=== PATIENT | male | born 1955 | race Caucasian/White ===

== ENCOUNTER 2019-07-17 02:33 | Day surgery (SDC) | payer MEDICAID, SELFPAY ==
[2019-07-17] VITALS (9 sets, daily range): BP systolic 76–159; BP diastolic 34–109; PULSE 87–100; RESP 16; TEMP 36.7; O2SAT 91–96
--- NOTE | 2019-07-17 02:46 | ED.GENADUL_ITS ---
Discharge Plan Disposition Patient Disposition: [facility] INPATIENT Condition: Good Discharge Details Chief Complaint: ThroatFB Clinical Impression: Esophageal foreign body Primary Care Provider: Francesco Victoria ED Provider: Elliot Bhandari Harvest Meds and New Rx's Prescriptions: No Action ibuprofen 200 MG tablet 1 tab PO PRN PRNRF: 0 Medical Decision Making Esophageal foreign body that is relatively high. No airway compromise. Will attempt effervescent drink, however, given the proximal nature of this impaction not likely to work. If it does not we will proceed with IV glucagon. Effervescent drink did not work. IV was established and glucagon given. We waited half an hour and then he attempted to drink water again. Immediately regurgitated back up water and saliva. Case therefore discussed with surgery, Dr. Leal. She will be in to evaluate for endoscopy. We will get an EKG preop as he is 64. Otherwise she did not feel that he needed any laboratory studies. ECG Data Attestation: I personally reviewed and interpreted this ECG (s) as follows: Prior ECG tracings: not available for review Interpretation: Sinus rhythm at a rate of 89. Left axis deviation. Normal intervals. No acute ST changes. HPI General Mode of arrival: ambulatory . Date/Time Provider Initiated Documentation: 07/17/19 02:35 . Limitations to Documentation: no limitations . Information obtained by: patient and RN notes reviewed . HPI Narrative: Patient presents to ED with complaint of foreign body sensation. Patient was eating chicken about a hour and a half ago. He feels like it is stuck at about the level of the clavicle. He is unable to swallow anything including saliva. He is not having difficulty breathing. He has not had this happen to him previously. He did have someone try the Heimlich on him but to no avail. He presents now for evaluation. Related Data Home Medications Medication Instructions Recorded Confirmed ibuprofen 1 tab PO PRN PRN 09/12/14 07/17/19 Allergies Allergy/AdvReac Type Severity Reaction Status Date / Time hay fever Allergy Mild sneezes,runny Uncoded 07/17/19 02:41 nose General Stated Complaint: ThroatFB KAVITHA: 3 Review of Systems Review of Systems As documented in HPI otherwise negative as below. Const: no fever, chills, weakness Resp: no cough, SOB, pleuritic pain CV: no CP, diaphoresis, edema, syncope GI: no abdominal pain, nausea, vomiting, diarrhea Neuro: no headache, numbness, focal weakness, confusion PFSH Family History Mother Personal history of malignant neoplasm Father No problems noted. Sister No problems noted. Brother No problems noted. Grandmother No problems noted. Social History Smoking/Tobacco Use Status: Current every day Tobacco Type: cigarettes Alcohol Intake: current Alcohol Intake frequency: holidays/special occasions only Alcohol type: beer Drug use: Never Do you feel safe at home: Yes Exam Narrative Exam Narrative: Vitals: Afebrile. Mildly hypertensive and tachycardic. Normal saturations. Const: WDWN male in NAD. HEENT: NC/AT. Normal facial exam. Neck: Supple. Trachea midline. No stridor. Lungs: Normal respiratory effort. Lungs are clear. Cor: RRR without murmur/gallop. Good radial pulses. GI: Soft. NT/ND. No guarding or rebound. Neuro: A+O x 3. CN grossly in tact. Good strength and no focal deficit. Ext: No C/C/E. No deformity or tenderness. Skin: Warm and dry without rash. Course Vital Signs Temperature 98.1 F 07/17/19 02:37 Pulse 100 H 07/17/19 02:37 Respiratory Rate 16 07/17/19 02:37 Blood Pressure 159/109 H 07/17/19 02:37 Pulse Oximetry 96 07/17/19 02:37 Temperature 98.1 F 07/17/19 02:37 Temperature Source Temporal Artery Scan 07/17/19 02:37 Pulse 100 H 07/17/19 02:37 Respiratory Rate 16 07/17/19 02:37 Respiratory Effort 07/17/19 02:40 Respiratory Pattern Normal 07/17/19 02:40 Blood Pressure 159/109 H 07/17/19 02:37 Pulse Oximetry 96 07/17/19 02:37 Oxygen Delivery Method Room Air 07/17/19 02:37 Oxygen Flow Rate 0 07/17/19 02:37 Pain Level 0 07/17/19 02:37
[2019-07-17] MEDS: Potassium Bicarbonate/Cit AC 25 MEQ TABLET.EFF PO (02:54)
--- NOTE | 2019-07-17 04:17 | W.SURGCON ---
Date of service: 07/17/19 Time of Service: 04:17 Assessment and Plan (1) Impacted esophageal foreign body: Current visit: Yes Status: Acute P\\ EGD under General with removal of foreign body Risks, benefits and complications have been reviewed. Complications include but are not limited to bleeding, pain, perforation, aspiration, sore throat and adverse reaction to the medication. Questions were entertained and answered to their satisfaction and they wished to proceed. No guarantees were given or implied. Qualifiers: Encounter type: initial encounter Qualified Code(s): T18.108A - Unspecified foreign body in esophagus causing other injury, initial encounter History of Present Illness Narrative: Mr. 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 He was eating spaghetti with chicken when he felt it get stuck. He tried the himlich on himself without improvement in his symptoms. He was given glucogon and effervecent without help in the ER. he has no history of GERD or heart Burn. He denies any cardiac history. Review of Systems Constitutional Reports system reviewed and no additional complaints, except as docu ENT Reports system reviewed and no additional complaints, except as docu Cardiovascular Reports system reviewed and no additional complaints, except as docu Respiratory Reports system reviewed and no additional complaints, except as docu Gastrointestinal Reports as per [facility] Medical History (Updated 07/17/19 @ 04:22 by Venus Leal MD) Hay fever (Acute) Tobacco abuse (Acute) Family History Mother Personal history of malignant neoplasm Father No problems noted. Sister No problems noted. Brother No problems noted. Grandmother No problems noted. Social History Smoking/Tobacco Use Status: Current every day Tobacco Type: cigarettes Alcohol Intake: current Alcohol Intake frequency: holidays/special occasions only Alcohol type: beer Drug use: Never Do you feel safe at home: Yes Exam Const General: cooperative, comfortable and no acute distress Orientation: alert and oriented x3 HENMT Head: normocephalic and atraumatic Resp Effort & Inspection: normal respiratory effort Auscultation: clear to auscultation bilaterally Cardio Rate: regular rate Rhythm: regular rhythm Heart Sounds: no gallops, no murmurs and no rubs GI Inspection: normal to inspection Palpation: soft Results Last Vital Signs Temp 98.1 F 07/17/19 02:37 Pulse 100 H 07/17/19 02:37 Resp 16 07/17/19 02:37 BP 159/109 H 07/17/19 02:37 Pulse Ox 96 07/17/19 02:37
[2019-07-17] MEDS: Lactated Ringers 1,000 ML 30 ML IV (05:00)
--- NOTE | 2019-07-17 05:23 | NUR.NOTE ---
Nursing Note: pt went to or at 0455 to have fb removed and will return to er
--- NOTE | 2019-07-17 05:27 | W.PM.DS.N ---
Date of service: 07/17/19 Time of Service: 05:27 DS: Diagnosis Discharge Diagnosis (1) Impacted esophageal foreign body: Status: Acute Discharge Plan Disposition Patient Disposition: HOME Condition: Good Discharge Details Chief Complaint: ThroatFB Clinical Impression: Esophageal foreign body Reason For Visit: esophageal foreign body Attending Provider: Venus Leal Primary Care Provider: Francesco Victoria ED Provider: Elliot Bhandari Home Meds and New Rx's Prescriptions: Continued ibuprofen 200 MG tablet 1 tab PO PRN PRNRF: 0 Discharge Instructions Additional Instructions: Follow up with PCP as needed For the next 24 hours keep to a soft diet. Stay away from meat. Activity:: Activity as Tolerated Diet:: As Tolerated Discharge Orders Discharge Orders: Discharge Order (Routine); Ordered 07/17/19 Ordered By: Venus Leal Exam Resp Effort & Inspection: normal respiratory effort Auscultation: clear to auscultation bilaterally Cardio Rate: regular rate Rhythm: regular rhythm GI Palpation: soft and nontender DS: Data Vitals/I&O Vitals and I&O: Vital Signs Temperature 98.1 F 07/17/19 02:37 Temperature Source Temporal Artery Scan 07/17/19 02:37 Pulse 100 H 07/17/19 02:37 Respiratory Rate 16 07/17/19 02:37 Respiratory Effort 07/17/19 02:40 Respiratory Pattern Normal 07/17/19 02:40 Blood Pressure 159/109 H 07/17/19 02:37 Pulse Oximetry 96 07/17/19 02:37 Oxygen Delivery Method Room Air 07/17/19 02:37 Oxygen Flow Rate 0 07/17/19 02:37 Pain Level 0 07/17/19 02:37 Intake & Output 07/16/19 07/16/19 07/17/19 11:59 23:59 11:59 Intake Total 300 / 300 Balance 300 / 300 Weight 165 lb Intake: IV 300 / 300 PFSH Medical History Hay fever (Acute) Tobacco abuse (Acute) Family History Mother Personal history of malignant neoplasm Father No problems noted. Sister No problems noted. Brother No problems noted. Grandmother No problems noted. Social History Smoking/Tobacco Use Status: Current every day Tobacco Type: cigarettes Alcohol Intake: current Alcohol Intake frequency: holidays/special occasions only Alcohol type: beer Drug use: Never Do you feel safe at home: Yes
--- NOTE | 2019-07-17 05:30 | W.PM.ENDDOP ---
Date of service: 07/17/19 Time of Service: 05:30 Endoscopy Report DATE OF PROCEDURE: 07/17/19 PRE-OP DIAGNOSIS: Esophageal foreign body POST-OP DIAGNOSIS: same PROCEDURE: EGD with removal of foreign body SURGEON: Venus Leal ANESTHESIA: FLAVIA ESTIMATED BLOOD LOSS: 0 PATHOLOGY: none sent COMPLICATIONS: None DISPOSITION: PACU INDICATIONS: Mr. Whitehead is a pleasant 64 year old male who came to the ER for a piece of chicken stuck in his esophagus. Glucagon and effervecents didn't work so EGD with removal was recommended. FINDINGS: A piece of chicken stuck right at the junction of the pharynx and esophagus PROCEDURE DESCRIPTION: After informed consent was obtained the patient was take to the procedure room and placed in a supine position. Monitors were applied and a time out was done. The patients name, date of , procedure type, allergies to medications and metal in their body was reviewed. The patient was placed undr general anesthesia and intubated. A bite block was placed. Once under anesthesia with his airway secured the gastroscope was advanced through the oropharynx which was grossly normal into the proximal esophagus. Right at the junction between the pharynx and esophagus a pice of chicken was noted. First I attempted to grasp it but I couln't get around it. I then gently started to push the piece down the esophagus and into the stomach. The scope was then retracted. no injuries were noted were the meat had been stuck. The EGD was removed and the patient was woken up, extubated and taken back to PACU for recovery. The patient did well and there were no immediate complications. Follow up: as needed with PCP
--- NOTE | 2019-07-17 05:49 | NUR.NOTE ---
Nursing Note: pt returned from or at [id number]
== END 2019-07-17 06:20 | disposition home or self-care (01) ==
LOC: ER 04:27 → DSU 05:02
PROVIDERS: Emergency Provider Emergency Medicine; PCP Family Medicine; Visit Provider Surgery
PROC: 0DC68ZZ Extirpation of Matter from Stomach, Via Natural or Artificial Opening Endoscopic (ICD-10-PCS; CPT 43247; principal; 2019-07-17 04:40)
DX: T18.128A Food in esophagus causing other injury, initial encounter (principal); K22.2 Esophageal obstruction
CPT/HCPCS: 43247; 93005; 99252; 99285; NC; 93010; 99284; J1100; J1610; J2405

== ENCOUNTER 2021-04-15 11:47 | Emergency (ER) | payer MEDICAID, SELFPAY ==
--- NOTE | 2021-04-15 11:48 | ED.GENADUL_ITS ---
Discharge Plan Disposition Patient Disposition: HOME Condition: Stable Discharge Details Clinical Impression: Effusion of right knee, Quadriceps tendon rupture Primary Care Provider: Unknown,Unknown ED Provider: Lluvia Dale Home Meds and New Rx's Prescriptions: New oxycodone 5 mg tablet 5 mg PO Q6H PRN (Reason: pain) Qty: 7 RF: 0 Continued ibuprofen 200 MG tablet 1 tab PO PRN PRNRF: 0 naproxen 250 mg Tablet 250 mg PO PRN PRNRF: 0 Discharge Instructions Instructions: Swollen Knee Joint (ED), Tendon Rupture (ED) Additional Instructions: The orthopedist suspects that you have a quadricep tendon rupture. 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 It is suspected that your quadriceps tendon rupture may have pulled the upper bone of your kneecap to a higher location within your knee. The orthopedist recommends that you keep your knee brace in extension (straight) until you follow-up with orthopedics. You can remove the brace to shower. You can use crutches for ambulation but you also bear weight on your right leg as tolerated. Call the orthopedics office tomorrow morning to schedule a follow-up appointment for reevaluation this week Your prescription has been sent electronically to your pharmacy. Call the pharmacy to make sure your prescription is ready before pickup. Take the prescription as directed. Alternate tylenol and motrin as needed and directed for pain. Take either naproxen or ibuprofen for pain as they are both NSAIDs (nonsteroidal anti- inflammatory drugs) and you should not take them both at the same time as this can increase your risk of gastrointestinal bleeding or ulcers. Return immediately to the emergency department if you develop any worsening or new concerning symptoms. Referrals: Praful Gipson MD [ [facility] STAFF PHYSICIAN] - Discharge Data Discharge Physician: Lluvia Dale Medical Decision Making 65-year-old male presents for right knee injury after twisting it when fell down the stairs at home last night. His right anterior knee appears edematous with ecchymosis and pain with flexion and weightbearing. He denies any direct blunt injury to his knee. He last took naproxen over 4 hours ago. We will give a dose of ibuprofen and oxycodone and refer for x-rays. Right knee x-ray noted a knee joint effusion and a questionable patellar fracture fragment or bipartite patella with chondral separation. X-rays reviewed with orthopedics on-call Dr. Gastelum. He examined patient at bedside and he suspects clinically that patient has a quadriceps tendon rupture and that the superior portion of his bipartite patella has been pulled more superiorly from the possible quadriceps tendon rupture. He is recommending a knee brace held in extension. Patient had a knee brace locked in extension placed at bedside. He was advised that he could weight-bear as tolerated. Patient has crutches at home. Patient placed on orthopedic follow-up list for follow-up this week. He was given oxycodone to go. Usual and customary return precautions given prior to discharge. Medical Records Medical records reviewed: Yes I reviewed the patient's medical records. Imaging Data Radiologic Study: Radiologist's impression: XR KNEE RT 4V AP,LAT,JANIE,PAT CLINICAL HISTORY:? twisting inj, r/o acute effusion, fx, arthritis TECHNIQUE:? COMPARISON:? No exams were available for comparison FINDINGS: Four views were obtained.? There is marked soft tissue swelling of the knee anteriorly.? There may be a knee joint effusion.? There is an osseous body projected superior to the patella which appears to correspond with either a patellar fracture fragment or a bipartite patella with chondral separation and displacement. No additional fracture seen. HPI General Mode of arrival: ambulatory . Date/Time Provider Initiated Documentation: 04/15/21 11:47 . Limitations to Documentation: no limitations . Information obtained by: patient . HPI Narrative: Patient is a 65-year-old male who presents to the ED with a complaint of right knee pain since a fall last night. Patient states he was walking down his stairs in his basement when he slipped and his left foot went through the stair rail and he twisted his right knee backward. Patient states he has been able to bear weight on his right knee but with pain. He took 250 mg of naproxen and 600 mg of ibuprofen last night and took 250 mg of naproxen today. He denies any direct blunt injury to his knee. Related Data Home Medications Medication Instructions Recorded Confirmed ibuprofen 1 tab PO PRN PRN 09/12/14 04/15/21 naproxen 250 mg PO PRN PRN 04/15/21 04/15/21 oxycodone 5 mg PO Q6H PRN #7 tab 04/15/21 Previous Rx's Medication Instructions Recorded oxycodone 5 mg PO Q6H PRN #7 tab 04/15/21 Allergies Allergy/AdvReac Type Severity Reaction Status Date / Time hay fever Allergy Mild sneezes,runny Uncoded 07/17/19 02:41 nose General KAVITHA: 3 Review of Systems All systems reviewed & are unremarkable except as noted in HPI and below PFSH Medical History (Updated 04/15/21 @ 14:05 by Lluvia Dale DO) Hay fever Tobacco abuse Family History Mother Personal history of malignant neoplasm BREAST Father No problems noted. Sister No problems noted. Brother No problems noted. Grandmother No problems noted. Social History Smoking/Tobacco Use Status: Current every day Tobacco Type: cigarettes Smoking risk assessment performed?: Yes Alcohol Intake: current Alcohol Intake frequency: a few times a week Alcohol type: beer Drug use: Never Substance use type: does not use Do you feel safe at home: Yes Exam Const General: cooperative, healthy appearing and no acute distress HENMT Head: normal to inspection Mouth: oral mucosae normal Eyes General: appearance normal, both eyes and all related structures Neck Neck: normal visual inspection Resp Effort & Inspection: normal respiratory effort and able to speak in complete sentences Cardio Rate: regular rate Skin General skin exam: no rashes or lesions noted Neuro General: patient alert, patient awake and patient oriented x3 Motor: muscle tone normal throughout Extrem Other: Right knee: Significant edema noted to anterior aspect with some mild ecchymosis. He has pain with flexion and valgus and varus stress with Shahram's test. Negative anterior posterior drawer test. No ligamentous laxity. No deformity noted. Right DP/PT pulses intact. No anterior knee cellulitis noted. Psych Appearance: grossly normal Affect: normal affect
[2021-04-15 11:56] VITALS: BP 170/93; PULSE 88; RESP 18; TEMP 36.8; O2SAT 97
--- NOTE | 2021-04-15 12:00 | DI.RAD_ITS ---
Exam(s) XR KNEE RT 4V AP,LAT,JANIE,PAT EXAM: XR KNEE RT 4V AP,LAT,JANIE,PAT CLINICAL HISTORY: twisting inj, r/o acute effusion, fx, arthritis TECHNIQUE: COMPARISON: No exams were available for comparison FINDINGS: Four views were obtained. There is marked soft tissue swelling of the knee anteriorly. There may be a knee joint effusion. There is an osseous body projected superior to the patella which appears to correspond with either a patellar fracture fragment or a bipartite patella with chondral separation a nd displacement. No additional fracture seen. IMPRESSION: RADIATION DOSE DELIVERED: Total DLP
[2021-04-15] MEDS: oxyCODONE 5 MG TAB PO (12:21)
[2021-04-15] MEDS: Ibuprofen 600 MG TAB PO (12:22)
--- NOTE | 2021-04-15 13:22 | DI.VRAD_ITS ---
PROCEDURE INFORMATION: Exam: XR Left Knee Exam date and time: 04/15/2021 12:15 PM Age: 65 years old Clinical indication: Other: Twisting injury, R/O acute effusion, FX, arthritis TECHNIQUE: Imaging protocol: XR Left knee. Views: 4 or more views. COMPARISON: No relevant prior studies available. FINDINGS: Bones/joints: Fracture displacement of patella. The superolateral patella is displaced 16 mm. This may represent a fractured bipartite patella. Pre patella soft tissue swelling. Joint space effusion. Soft tissues: Normal. IMPRESSION: 1. Joint space effusion. 2. Fracture displacement of the patella. Dictated and Authenticated by: Papi Ambrose MD. Ordering:CHEYENNE Teixeira MD
== END 2021-04-15 14:44 | disposition home or self-care (01) ==
PROVIDERS: Emergency Provider Physician Assistant
DX: M25.461 Effusion, right knee (principal); S76.111A Strain of right quadriceps muscle, fascia and tendon, initial encounter; W10.8XXA Fall (on) (from) other stairs and steps, initial encounter; X50.9XXA Other and unspecified overexertion or strenuous movements or postures, initial encounter
CPT/HCPCS: 29505; 99283; 73564; 99284

== ENCOUNTER 2021-04-17 10:45 | Outpatient (CLI) | payer MEDICAID, SELFPAY ==
[2021-04-17 13:32] LABS: Source Nasal/Nares
[2021-04-17 16:21] LABS: COVID-19 PCR Negative (Negative)
== END 2021-04-17 10:46 | disposition home or self-care (01) ==
LOC: LBO 10:45
PROVIDERS: Visit Provider Student in an Organized Health Care Education/Training Program
DX: Z20.822 Contact with and (suspected) exposure to COVID-19 (principal); Z01.818 Encounter for other preprocedural examination
CPT/HCPCS: 87635

== ENCOUNTER 2021-04-19 07:59 | Day surgery (SDC) | payer MEDICAID, SELFPAY ==
[2021-04-19] VITALS (7 sets, daily range): BP systolic 123–153; BP diastolic 60–87; PULSE 77–85; RESP 12–16; TEMP 36.5–36.8; O2SAT 94–97; BMI 24.9
[2021-04-19] MEDS: Lactated Ringers 1,000 ML 100 ML IV (08:36)
--- NOTE | 2021-04-19 09:44 | W.ANESPRE ---
General Info Date of Service Date Performed: 04/19/21 Height: 5 ft 8 in Weight: 74.4 kg Body Mass Index (BMI): 24.9 Surgical Procedure: Operation Date: 04/19/21 10:10 Proposed Procedures Side Surgeon p Knee Ruptured Quad Tendon Repair Right Keenan Pa MD s Knee ORIF Patella Right Keenan Pa MD Meds Allergies and Home Medications Allergies Allergy/AdvReac Type Severity Reaction Status Date / Time hay fever Allergy Mild sneezes,runny Uncoded 04/17/21 15:19 nose Home Medication Medication Instructions Recorded aspirin 81 mg PO BID 30 Days #60 tab 04/19/21 ibuprofen 400 mg PO Q6H PRN 04/19/21 naproxen 250 - 500 mg PO BID PRN #60 tab 04/19/21 oxycodone 5 - 10 mg PO Q4H PRN #22 tab 04/19/21 Current Visit Medications: Current Medications Generic Name Dose Route Start Last Admin Trade Name Freq PRN Reason Stop Dose Admin Ringer's Solution 1,000 mls @ 100 mls/hr 04/19/21 06:00 04/19/21 08:36 IV 05/18/21 23:59 100 mls/hr INFUSION BRIAN Administration Cefazolin Sodium/Dextrose 2 gm in 50 mls @ 100 mls/hr 04/19/21 06:00 Ancef Duplex IVPB 04/19/21 16:00 PREOP BRIAN IV Miscellaneous Supplies 1 each 04/19/21 06:00 Iv Access IV 05/18/21 23:59 DIRECTED BRIAN Oxycodone HCl 5 - 10 mg 04/19/21 07:10 Oxycodone 5 Mg Tab PO Q4H PRN PRN Sodium Chloride 0 ml 04/19/21 06:00 Normal Saline Flush 10 Ml Syr IV 05/18/21 23:59 PRN PRN Sodium Chloride 0 ml 04/19/21 06:00 Normal Saline 10 Ml Vial IJ 05/18/21 23:59 DIRECTED PRN Sterile Water 0 ml 04/19/21 06:00 Water,Injection,Sterile 10 Ml Vial IJ 05/18/21 23:59 DIRECTED PRN PFSH Active Problems Active Problems: Problem Status Onset Code Impacted esophageal foreign body T18.108A Quadriceps tendon rupture 04/14/21 S76.119A Right patella fracture 04/14/21 S82.001A Medical History Medical History Hay fever Tobacco abuse Surgical History Surgical History History of esophagogastroduodenoscopy (EGD) Tobacco Smoking/Tobacco Use Status: Current every day Tobacco Type: cigarettes Alcohol Alcohol Intake: current Alcohol intake frequency: a few times a week Alcohol type: beer Substance Use Substance use: Never Substance use type: does not use Vital Signs and Lab Results Vital Signs Most Recent Vital Signs in EMR: Most Recent Vital Signs Temp Pulse Resp BP Pulse Ox 36.8 C 85 16 153/87 H 97 04/19/21 08:07 04/19/21 08:07 04/19/21 08:07 04/19/21 08:07 04/19/21 08:07 Lab Results Blood Type / Crossmatch: No Data to Display Complete Blood Count: No Data to Display Complete Metabolic Panel: No Data to Display Liver Function Panel: No Data to Display Coagulation Panel: No Data to Display Cardiac Panel: No Data to Display Arterial Blood Gas: No Data to Display Venous Blood Gas: No Data to Display Pancreas Panel: No Data to Display Thyroid Panel: No Data to Display Infectious Disease: Coronavirus (COVID-19)(PCR) Negative (Negative) 04/17/21 11:15 04/17/21 Coronavirus 2019 Source Nasal/nares 04/17/21 11:15 04/17/21 Blood Cultures: No Data to Display Toxicology Panel: No Data to Display Anesthesia Assessment and Plan Anesthesia History Personal History: No History of Anesthesia Complications Family History: No Family History of Anesthesia Complications Exercise Tolerance Exercise Tolerance: Metabolic Equivalents>4 Pertinent Negatives Pertinent Negatives: No Symptoms of GERD Cardiac & Pulmonary Exam Cardiac Exam: Normal S1/S2 Heart Sounds Pulmonary Exam: Clear Bilateral Breath Sounds Airway Exam Known Difficult Airway: No Mallampati Class: 2 Mouth Opening: Normal (> 3cm) Thyromental Distance: Greater than 3 cm Neck Range of Motion: Full ROM Neck Circumference: Normal Teeth Condition: Normal Dentition ASA Classification ASA Score: ASA 2 Emergency Case?: No NPO Status NPO Status: NPO Clears >2 hours, Solids >8 hours Anesthesia Plan Resuscitation Status: Full Code Anesthesia Technique: General Anesthesia Airway Planned: LMA Monitors Used: Standard Monitors
--- NOTE | 2021-04-19 11:36 | W.ANESNERVE ---
Nerve Block Single Injection Procedure Date and Time Date Performed: 04/19/21 Procedure Start: 10:36 Location Where Procedure Performed Procedure Location: PACU Reason Performed: Postoperative Analgesia Requesting Provider: Keenan Pa Timeout Performed Timeout Performed: Yes Monitoring Used ECG, Blood Pressure and SpO2 Sterility Sterility: Hand Hygiene, Surgical Cap, Surgical Mask, Sterile Gloves and Chlorhexidine Sedation Given During Procedure Sedation Given (Indicate Dose Given): Versed IV Dose:: 2 mg Patient Mental Status Patient Mental Status: Awake Nerve Block 1st Nerve Block: Laterality: Right Block Type: Femoral Needle / Catheter Used: 100mm SonoPlex II Local Anesthetic Bolus (Indicate Dose Given): Lidocaine used for local infiltration of skin, Injected in 3-5ml increments after negative blood aspiration, Bupivacaine 0.5% Dose:: 10 cc and Exparel Dose:: 10 cc Additives (Indicate Dose Given): None Ultrasound: Sterile probe cover and gel used Ultrasound Image Saved?: Yes Nerve Stimulator: Not Used Paresthesia: None Procedure Tolerated: No Complications and Patient tolerated well Procedure Outcome: Successful Performed By: Alycia Richter Supervised By: Kayley Mckeon
[2021-04-19] MEDS: ceFAZolin 2 GM/50 ML BAG IVPB (12:03)
--- NOTE | 2021-04-19 14:33 | DI.RAD_ITS ---
Exam(s) XR KNEE RT 1V EXAM: XR KNEE RT 1V CLINICAL HISTORY: RUPTURED QUAD TENDON, PATELLA FX RIGHT. TECHNIQUE: 2D and realtime digital imaging was performed. COMPARISON: CR,XR XR KNEE RT 4V AP,LAT,JANIE,PAT from 04/15/2021 CR,XR XR KNEE RT 4V AP,LAT,JANIE,PAT from 04/15/2021 FINDINGS: Fluoroscopy was provided in the OR for Dr. Pa hard copy images show placement of a screw through the patella for fracture fixation. The alignment appears anatomic. Please see procedure note for details. RADIATION DOSE DELIVERED: Ka,r=0.8 mGy
--- NOTE | 2021-04-19 14:51 | W.ANESPOSTOP ---
Postoperative Evaluation Date, Time and Location Date Performed: 04/19/21 Time Performed: 14:51 Patient Location: PACU Vital Signs Most Recent Imported Vital Signs: Most Recent Vital Signs Temp Pulse Resp BP Pulse Ox 36.5 C 82 12 123/65 94 04/19/21 14:43 04/19/21 14:43 04/19/21 14:43 04/19/21 14:43 04/19/21 14:43 Pain Score Most Recent Pain Score: Most Recent Pain Score Pain Level 0 04/19/21 14:43 Assessment Mental Status: Awake (Alert & Oriented to Patient Baseline) Airway and Respiratory Function: Patent airway with normal (patient baseline) respiratory exam Cardiovascular Function: Hemodynamically Stable Hydration Status: Adequately Hydrated Nausea & Vomiting: No Nausea or Vomiting Pain: Pt. Denies Any Pain Peripheral Nerve Block: Regional nerve block not resolved at time of post operative discharge
--- NOTE | 2021-04-19 15:10 | W.PM.DSUDISC ---
Discharge Plan Disposition Patient Disposition: HOME Condition: Stable Discharge Details Reason For Visit: QUAD TENDON RUTURE,PATELLA FX Attending Provider: Keenan Pa Primary Care Provider: Sherry Miner Home Meds and New Rx's Prescriptions: New aspirin 81 mg tablet,delayed release (DR/EC) 81 mg PO BID 30 Days Qty: 60 RF: 0 naproxen 250 mg tablet 250 - 500 mg PO BID PRN (Reason: Moderate pain or swelling) Qty: 60 RF: 0 oxycodone 5 mg tablet 5 - 10 mg PO Q4H PRN (Reason: moderate to severe pain) Qty: 22 RF: 0 Discontinued ibuprofen 200 MG tablet 1 tab PO PRN PRNRF: 0 naproxen 250 mg Tablet 250 mg PO PRN PRNRF: 0 oxycodone 5 mg tablet 5 mg PO Q6H PRN (Reason: pain) Qty: 7 RF: 0 No Action ibuprofen 200 mg Capsule 400 mg PO Q6H PRNRF: 0 Discharge Instructions Additional Instructions: Surgery: Right patella ORIF and quadriceps tendon repair Activity: Weightbearing as tolerated with hinged-knee brace locked in full extension for 8 weeks. Recommend crutches or walker to minimize fall risk. A physical therapy prescription has been sent electronically to start in about 3 weeks. Recommend ice and elevation to minimize swelling and discomfort. REHAB PROTOCOL: Weeks 0-2: Maintain knee in full extension at all times. Isometric only quad contractions. No active knee extension for 6 weeks. Weeks 2-6: Brace unlocked for ROM exercises. Start at 0-30 degrees. Passive-only knee extension (using other leg or gravity). Advance flexion 15 degrees per week with goal of 90 degrees flexion around week 6. After 6 weeks: Start active-assisted then active knee extension around week 8; advance to full flexion by week 12. Concentric quad strengthening after 3 months (07/20/21) Eccentric quad strengthening at 4 months (08/20/21) Prescriptions: Aspirin 81 mg take 1 twice daily to prevent a blood clot for 30 days Naproxen 250 mg take 1-2 every 12 hours with a meal as needed for moderate pain Oxycodone 5 mg take 1-2 every 4-6 hours as needed for severe pain You may use [id number] Tylenol (acetaminophen) as needed for mild pain. These pain medications may be taken all at once or in different combinations as needed. Also, recommend Colace (docusate) as a stool softener as surgery and pain medicine cause constipation. Dressings: Leave brace and dressing in place until follow-up. Keep clean and dry at all times. Adjust, loosen, or tighten William wrap and hinged knee brace as needed. You may take breaks from the brace while sitting or resting with the knee maintained straight. Follow-up: 10-14 days with an orthopedic physician anesthesiologist assistant (8:30 AM on 05/02/21) and [address] Pa Let us know right away if you develop any redness, drainage, fevers, chest pain, or trouble breathing. Do not drink alcohol or drive for at least 24 hours after anesthesia. Please call the office during business hours with any questions or concerns. Referrals: Keenan Pa MD [ [facility] STAFF PHYSICIAN] - Discharge Orders Discharge Orders: Discharge Order (Routine); Ordered 04/19/21 Ordered By: Keenan Pa DS: Diagnosis Discharge Diagnosis (1) Quadriceps tendon rupture: Status: Acute (2) Right patella fracture: Status: Acute
--- NOTE | 2021-04-19 15:30 | W.PM.OP ---
Date of service: 04/19/21 Time of Service: 14:00 Operative Note Operative Note DATE OF PROCEDURE: 04/19/21 PRE-OP DIAGNOSIS: 1. Displaced bipartite patella fracture 2. Complete quadriceps tendon rupture POST-OP DIAGNOSIS: same PROCEDURE: 1. Patella ORIF, CPT #61851 2. Quadriceps tendon repair, CPT #66608 SURGEON: Keenan Pa [employer]: Massiel Meier ANESTHESIA TYPE: Local By Surgeon, General LMA/ETT and Primary Nerve Block Refer to Anesthesia Record ESTIMATED BLOOD LOSS: 15 PATHOLOGY: none sent TOURNIQUET TIME: 0 COMPLICATIONS: None Patient was transported to: PACU Patient's condition: stable Implants: Synthes 4.0 mm partially threaded cancellous screw x1, Arthrex 4.75 mm SwiveLock x1 Indications: Please see complete medical record for details. Findings: Complete disruption of extensor mechanism involving quadriceps tendon rupture from the medial half of the patella and displaced bipartite patella fracture from the lateral half. Significant medial and lateral retinacular tears. Bipartite patella synchondrosis. Procedure Description: In the operating room, general anesthesia was induced. The patient was positioned supine on the operating room table. All bony prominences were well-padded. Preoperative antibiotics were administered. The right knee was prepped and draped in the usual sterile fashion. The correct patient, procedure, and side of the procedure were all verified prior to incision. 30 cc of 0.5% bupivacaine with epinephrine was infiltrated about the planned longitudinal incision centered over the superior aspect of the patella. An incision was made a few centimeters proximal to the palpable quadriceps tendon and fracture fragment extending to the inferior pole of the patella. Abundant hematoma was encountered and removed below the subcutaneous tissues. The unusual injury was carefully inspected revealing a complete disruption of the extensor mechanism involving complete soft tissue quadriceps tendon avulsion from the medial half of the superior patella and widely displaced bipartite patella fracture still intact to the quadriceps tendon on the lateral half. Medial lateral retinacular tears extended from adjacent to the patella a few centimeters on both sides. The knee was irrigated of hematoma and fibrinous material. The superior pole the patella was carefully debrided of frayed and nonstructural tissue. The synchondrosis was taken down to a bony margin. A 2 mm K wire was then used both medially and laterally to perforate the superior margin of the patella optimize bleeding and healing bone surface. The displaced superior lateral patella fracture fragment was not identified and similarly synchondrosis fibrous and cartilage tissue removed and the bone drilled with the K wires well to optimize chance of healing. The quadriceps tendon stump was identified and lightly debrided to healthy strong margin of tissue. Bone forceps and tendon clamps were used to reduce the quadriceps tendon and bone fragment to the superior pole of patella. Under direct visualization and with fluoroscopic assistance the superior lateral fracture fragment was adjusted into near?anatomic position. Digitally the undersurface articular margin was palpated and reduction slightly tweaked and bone clamps adjusted for anatomic reduction with no joint surface step-off. A 2 mm K wire was then passed from superior lateral distally towards the central aspect of the fracture fragment patella. The quadriceps tendon that was intact to this fragment was split longitudinally over the center superior aspect of the bone piece exposing bone for planned hardware placement. The 2.5 mm drill was then passed perpendicular to the fracture line from proximal small fragment to distal and a bicortical fashion taking care to maintain central trajectory in the anterior to posterior plane and digitally ensuring no joint penetration at any time. The bicortical screw length was confirmed with depth gauge and then 6 mm removed for a partially-threaded cancellous screw, which was inserted by hand while maintaining reduction. The K wire was removed and bone clamp maintained prior to final compression across the fracture site to maintain reduction. There is excellent strength of this fracture repair with the lateral half of the extensor quadriceps mechanism. The prepared medial superior margin patella was then drilled and tapped with the hard bone equipment for 4.75 swivel lock anchor. As the quadriceps tendon had ruptured with significant anterior tissue that extended over the anterior surface of patella, the decision was made to place the anchor with sutures and then repair from there as opposed to trying to reduce and place a suture anchor through a split in this veil of tissue. The suture anchor was loaded with 2 pairs of suture tape and securely fixated in the patella flush to just slightly countersunk to the bone healing margin. The #2 FiberWire was then used from deep to anterior in a horizontal mattress fashion to reduce and provisionally fixate the medial half of the quadriceps tendon to the patella. A Flo clamp was used to maintain quadriceps tendon patella reduction. The suture tape was then passed from deep to superficial at the appropriate central margin in a Krak?w fashion approximately with both limbs of a suture tape pair that were then tied together over the tendon. This was repeated for the other suture tape pair with the medial margin of the tendon. Repair was inspected found of excellent strength. The knee was flexed to 90 degrees and there was no gapping or displacement of the fracture or quadriceps tendon with secure hardware fixation. The knee was then copiously irrigated normal saline. The knots were then buried into the quadriceps tendon before the suture tails were cut. Additional suture tape was then used in a buried fashion to close the longitudinal split created for the screw insertion for the superior lateral fragment. The suture tape was then used immediately medial and lateral to the patella in a [id number] fashion closing valdivia retinacular tissue. 0 Vicryl was then used in [id number] fashion to close the remainder of the medial and lateral retinaculum as well as repair the sleeve of quadriceps tendon anterior expansion over the patella to soft tissue and periosteum. Final x-rays AP, lateral, and oblique medial lateral facet images showed excellent reduction and appropriate hardware placement. The knee was tested again to 90 degrees flexion with excellent strength of repair. Superficial tissues were then copiously irrigated normal saline. Subcutaneous tissue was closed in 2-0 Monocryl in a buried interrupted fashion. The skin was closed in 3-0 Monocryl in a buried subcuticular running fashion. Skin glue was applied over the incision and allowed to dry before applying a Mepilex bandage. The entire lower extremity was gently wrapped in an William bandage and the patient's hinged knee brace was carefully adjusted and applied maintaining the knee in full extension. The patient awoke from anesthesia without complication and was transferred to the recovery room in a stable condition.
== END 2021-04-19 16:00 | disposition home or self-care (01) ==
PROVIDERS: PCP Nurse Practitioner Adult Health; Visit Provider Student in an Organized Health Care Education/Training Program
PROC: (CPT 27524; principal; 2021-04-19 10:00)
PROC: (CPT 27524; 2021-04-19 10:00)
DX: S82.091A Other fracture of right patella, initial encounter for closed fracture (principal); S76.111A Strain of right quadriceps muscle, fascia and tendon, initial encounter; F17.210 Nicotine dependence, cigarettes, uncomplicated; W10.8XXA Fall (on) (from) other stairs and steps, initial encounter
CPT/HCPCS: 27524; 27385; 76942; 73560; J0690; J1100; J1885; J2001; J2250; J2405; J2704

== ENCOUNTER 2021-05-30 10:38 | Outpatient (CLI) | payer MEDICAID, SELFPAY ==
--- NOTE | 2021-05-30 09:45 | DI.RAD_ITS ---
Exam(s) XR KNEE RT 2V AP,LAT EXAM: XR KNEE RT 2V AP,LAT CLINICAL HISTORY: F/u. TECHNIQUE: 2D digital imaging was performed. COMPARISON: CR,XR XR KNEE RT 4V AP,LAT,JANIE,PAT from 04/15/2021 XR KNEE RT 1V from 04/19/2021 FINDINGS: There is again seen a single screw transfixing the patellar fragment. No change in alignment of the orthopedic hardware patellar fragments is noted. The bones are otherwise intact. The bones are norm ally mineralized. Soft tissues are unremarkable. Atherosclerosis. IMPRESSION: Stable postsurgical changes of the right patella. DATA REPOSITORY: RADIATION DOSE DELIVERED:
== END 2021-05-30 10:39 | disposition home or self-care (01) ==
LOC: DIORS 10:39
PROVIDERS: PCP Nurse Practitioner; Referring Provider Nurse Practitioner; Visit Provider Student in an Organized Health Care Education/Training Program
DX: S82.001D Unspecified fracture of right patella, subsequent encounter for closed fracture with routine healing (principal); X58.XXXD Exposure to other specified factors, subsequent encounter
CPT/HCPCS: 73560

== ENCOUNTER 2021-07-11 14:35 | Outpatient (CLI) | payer MEDICAID, SELFPAY ==
--- NOTE | 2021-07-11 09:43 | DI.RAD_ITS ---
Exam(s) XR KNEE RT 2V AP,LAT EXAM: XR KNEE RT 2V AP,LAT CLINICAL HISTORY: F/U RIGHT PATELLA FRACTURE. TECHNIQUE: 2D digital imaging was performed. COMPARISON: CR XR KNEE RT 2V AP,LAT from 05/30/2021 FINDINGS: Again noted is a slightly oblique to the fixation screw through the bipartite patella, unchanged. No additional findings. There appears to be a joint effusion. There is some swelling anterior to the patella noted. Calcification is noted in the proximal aspect of the patellar ligament. Femoral cond yles and tibial plateau appear unremarkable. IMPRESSION: DATA REPOSITORY: RADIATION DOSE DELIVERED:
== END 2021-07-11 14:36 | disposition home or self-care (01) ==
LOC: DIORS 14:35
PROVIDERS: Visit Provider Student in an Organized Health Care Education/Training Program
DX: S82.001D Unspecified fracture of right patella, subsequent encounter for closed fracture with routine healing (principal); M25.461 Effusion, right knee; M25.861 Other specified joint disorders, right knee; X58.XXXD Exposure to other specified factors, subsequent encounter
CPT/HCPCS: 73560

== ENCOUNTER 2021-07-25 02:30 | Outpatient (CLI) | payer MEDICARE, MEDICAID, SELFPAY ==
[2021-07-25 10:53] LABS: Source Nasal/Nares
[2021-07-25 13:01] LABS: COVID-19 PCR Negative (Negative)
== END 2021-07-25 02:31 | disposition home or self-care (01) ==
LOC: LBO 02:30
PROVIDERS: Visit Provider Student in an Organized Health Care Education/Training Program
DX: Z20.822 Contact with and (suspected) exposure to COVID-19 (principal); Z01.818 Encounter for other preprocedural examination
CPT/HCPCS: 87635

== ENCOUNTER 2021-07-27 06:20 | Day surgery (SDC) | payer MEDICARE, MEDICAID, SELFPAY ==
[2021-07-27] VITALS (8 sets, daily range): BP systolic 129–166; BP diastolic 69–94; PULSE 62–71; RESP 11–18; TEMP 36.1–36.5; O2SAT 96–99; BMI 23.6
--- NOTE | 2021-07-27 06:59 | W.ANESPRE ---
General Info Date of Service Date Performed: 07/27/21 Height: 5 ft 8 in Weight: 70.6 kg Body Mass Index (BMI): 23.6 Surgical Procedure: Operation Date: 07/27/21 07:40 Proposed Procedures Side Surgeon p Knee Arthroscopy w/lysis of adhesions and manipulation under anesthesia Right Keenan Pa MD Meds Allergies and Home Medications Allergies Allergy/AdvReac Type Severity Reaction Status Date / Time hay fever Allergy Mild sneezes,runny Uncoded 07/27/21 06:27 nose Home Medication Medication Instructions Recorded ibuprofen 400 mg PO Q6H PRN 04/19/21 naproxen 250 - 500 mg PO BID PRN #60 tab 04/19/21 Current Visit Medications: Current Medications Generic Name Dose Route Start Last Admin Trade Name Freq PRN Reason Stop Dose Admin Ephedrine Sulfate 0 mg 07/27/21 06:49 Ephedrine 50 Mg/Ml Vial IVP DIRECTED PRN Fentanyl 0 mcg 07/27/21 06:49 Fentanyl 100 Mcg/2 Ml Vial IVP DIRECTED PRN Hydromorphone HCl 0 mg 07/27/21 06:49 Hydromorphone 2 Mg/Ml Vial IVP DIRECTED PRN Ringer's Solution 1,000 mls @ 100 mls/hr 07/27/21 06:00 IV 08/25/21 23:59 INFUSION BRIAN Cefazolin Sodium 2,000 mg/ 100 mls @ 200 mls/hr 07/27/21 06:00 Sodium Chloride IV 07/27/21 23:59 PREOP BRIAN IV Miscellaneous Supplies 1 each 07/27/21 06:00 Iv Access IV 08/25/21 23:59 DIRECTED BRIAN Naloxone HCl 0 mg 07/27/21 06:49 Naloxone 0.4 Mg/Ml Vial IVP PRN PRN Sodium Chloride 0 ml 07/27/21 06:00 Normal Saline Flush 10 Ml Syr IV 08/25/21 23:59 PRN PRN Sodium Chloride 0 ml 07/27/21 06:00 Normal Saline 10 Ml Vial IJ 08/25/21 23:59 DIRECTED PRN Sterile Water 0 ml 07/27/21 06:00 Water,Injection,Sterile 10 Ml Vial IJ 08/25/21 23:59 DIRECTED PRN PFSH Active Problems Active Problems: Problem Status Onset Code Arthrofibrosis of knee joint M24.669 Impacted esophageal foreign body T18.108A Quadriceps tendon rupture 04/14/21 S76.119A Right patella fracture 04/14/21 S82.001A Medical History Medical History Hay fever Tobacco abuse Surgical History Surgical History History of esophagogastroduodenoscopy (EGD) Tobacco Smoking/Tobacco Use Status: Current every day Tobacco Type: cigarettes Alcohol Alcohol Intake: current Alcohol intake frequency: a few times a month Alcohol type: beer Substance Use Substance use: Never Substance use type: does not use Vital Signs and Lab Results Vital Signs Most Recent Vital Signs in EMR: Most Recent Vital Signs Temp Pulse Resp BP Pulse Ox 36.5 C 71 16 143/85 H 96 07/27/21 06:34 07/27/21 06:34 07/27/21 06:34 07/27/21 06:34 07/27/21 06:34 Lab Results Blood Type / Crossmatch: No Data to Display Complete Blood Count: No Data to Display Complete Metabolic Panel: No Data to Display Liver Function Panel: No Data to Display Coagulation Panel: No Data to Display Cardiac Panel: No Data to Display Arterial Blood Gas: No Data to Display Venous Blood Gas: No Data to Display Pancreas Panel: No Data to Display Thyroid Panel: No Data to Display Infectious Disease: Coronavirus (COVID-19)(PCR) Negative (Negative) 07/25/21 09:55 07/25/21 Coronavirus 2019 Source Nasal/Nares 07/25/21 09:55 07/25/21 Blood Cultures: No Data to Display Toxicology Panel: No Data to Display Anesthesia Assessment and Plan Anesthesia History Personal History: No History of Anesthesia Complications Family History: No Family History of Anesthesia Complications Exercise Tolerance Exercise Tolerance: Metabolic Equivalents>4 Pertinent Negatives Pertinent Negatives: No Symptoms of GERD, No Major Cardiovascular Symptoms or Complaints, No History of CVA/TIA and Other (1/2 ppd smoker) Cardiac & Pulmonary Exam Cardiac Exam: Normal S1/S2 Heart Sounds Pulmonary Exam: Clear Bilateral Breath Sounds Airway Exam Known Difficult Airway: No Mallampati Class: 2 Mouth Opening: Normal (> 3cm) Thyromental Distance: Greater than 3 cm Neck Range of Motion: Full ROM Neck Circumference: Normal Teeth Condition: Normal Dentition ASA Classification ASA Score: ASA 2 Emergency Case?: No NPO Status NPO Status: NPO Clears >2 hours, Solids >8 hours Anesthesia Plan Resuscitation Status: Full Code Anesthesia Technique: General Anesthesia Airway Planned: Endotracheal Tube Monitors Used: Standard Monitors
[2021-07-27] MEDS: Lactated Ringers 1,000 ML 100 ML IV (07:10)
[2021-07-27] MEDS: ceFAZolin 2,000 MG in Normal Saline 100 ML 200 MG IV (07:51)
[2021-07-27] MEDS: EPINEPHrine 30 MG/30 ML VIAL (08:11)
--- NOTE | 2021-07-27 08:22 | W.ANESNERVE ---
Nerve Block Single Injection Procedure Date and Time Date Performed: 07/27/21 Procedure Start: 07:12 Location Where Procedure Performed Procedure Location: PACU Reason Performed: Postoperative Analgesia Requesting Provider: Keenan Pa Timeout Performed Timeout Performed: Yes Monitoring Used ECG, Blood Pressure and SpO2 Sterility Sterility: Hand Hygiene, Surgical Cap, Surgical Mask, Sterile Gloves and Chlorhexidine Sedation Given During Procedure Sedation Given (Indicate Dose Given): No Sedation given Patient Mental Status Patient Mental Status: Awake Nerve Block 1st Nerve Block: Laterality: Right Block Type: Femoral Needle / Catheter Used: 100mm SonoPlex II Local Anesthetic Bolus (Indicate Dose Given): Lidocaine used for local infiltration of skin, Injected in 3-5ml increments after negative blood aspiration, Bupivacaine 0.5% Dose:: 10mL and Exparel Dose:: 10mL Additives (Indicate Dose Given): None Ultrasound: Sterile probe cover and gel used Ultrasound Image Saved?: Yes Nerve Stimulator: Not Used Paresthesia: None Procedure Tolerated: No Complications and Patient tolerated well Procedure Outcome: Successful Performed By: Alycia Burciaga Supervised By: Yadiel Coles
[2021-07-27] MEDS: MORPHine 4 MG/ML SYR (08:47)
--- NOTE | 2021-07-27 09:36 | PDOC.DSDIS_ITS ---
Discharge Plan Disposition Patient Disposition: HOME Condition: Stable Discharge Details Reason For Visit: Right knee surgery Attending Provider: Keenan Pa Primary Care Provider: Unknown,Unknown Home Meds and New Rx's Prescriptions: New aspirin 81 mg tablet,delayed release (DR/EC) 81 mg PO DAILY 14 Days Qty: 14 RF: 0 naproxen 250 mg tablet 250 - 500 mg PO BID PRN (Reason: Moderate pain or swelling) Qty: 60 RF: 0 oxycodone 5 mg tablet 5 - 10 mg PO Q4H PRN (Reason: moderate to severe pain) Qty: 16 RF: 0 Continued naproxen 250 mg tablet 250 - 500 mg PO BID PRN (Reason: Moderate pain or swelling) Qty: 60 RF: 0 Discontinued ibuprofen 200 mg Capsule 400 mg PO Q6H PRNRF: 0 Discharge Instructions Additional Instructions: Surgery: Right knee arthroscopy with lysis of adhesions, partial medial segment, and manipulation under anesthesia Activity: Weightbearing as tolerated. Use crutches while quadriceps muscles are weak from nerve block. Encourage regular active and passive range of motion and stretching to the knee. A physical therapy prescription has been sent electronically to begin today. Prescriptions: Aspirin 81 mg take 1 daily to prevent a blood clot for 2 weeks Naproxen 250 mg take 1-2 every 12 hours with a meal as needed for moderate pain Oxycodone 5 mg take 1-2 every 4-6 hours as needed for severe pain You may use bejw-[id number] Tylenol (acetaminophen) as needed for mild pain. These pain medications may be taken all at once or in different combinations as needed. Also, recommend Colace (docusate) as a stool softener as surgery and pain medicine cause constipation. Dressings: Leave dressing in place for 3 days. May then remove and leave open to air or cover incisions with Band-Aids. May shower after 5 days. Follow-up: 10-[address] Pa. Please arrange follow-up with your primary care provider to discuss hypertension (high blood pressure). Let us know right away if you develop any redness, drainage, fevers, chest pain, or trouble breathing. Do not drink alcohol or drive for at least 24 hours after anesthesia. Please call the office during business hours with any questions or concerns. Referrals: Keenan Pa MD [ [facility] STAFF PHYSICIAN] - Discharge Orders Discharge Orders: Discharge Order (Routine); Ordered 07/27/21 Ordered By: Keenan Pa DS: Diagnosis Discharge Diagnosis (1) Arthrofibrosis of knee joint: Status: Acute (2) Quadriceps tendon rupture: Status: Acute (3) Right patella fracture: Status: Acute
--- NOTE | 2021-07-27 10:08 | ROE_ITS ---
Date of service: 07/27/21 Time of Service: 08:00 Operative Note Operative Note DATE OF PROCEDURE: 07/27/21 PRE-OP DIAGNOSIS: [Right knee] 1. Arthrofibrosis status post bipartite patella fracture and quadriceps tendon rupture repairs POST-OP DIAGNOSIS: other Right knee 1. Arthrofibrosis status post bipartite patella fracture and quadriceps tendon rupture repairs 2. Medial meniscus tear PROCEDURE: Right knee 1. Arthroscopic lysis of adhesions with manipulation under anesthesia, CPT #46247 2. Partial medial meniscectomy, CPT #84122 SURGEON: Keenan Pa BRIDGE/STRUCTURE INSPECTION TEAM LEADER: None None ANESTHESIA TYPE: Local By Surgeon, General LMA/ETT and Primary Nerve Block Refer to Anesthesia Record ESTIMATED BLOOD LOSS: 20 PATHOLOGY: none sent TOURNIQUET TIME: 0 COMPLICATIONS: None Patient was transported to: PACU Patient's condition: stable Implants: None Indications: Please see complete medical record for details. Findings: Exam under anesthesia: Significantly stiff knee with range of motion 10-70 degrees. Gentle manipulation performed prior to arthroscopy achieved full terminal extension -5 degrees of flexion remained quite limited at 110 degrees. Patella was also stiff to medial lateral translation. Arthroscopic findings: Profound synovitis, scar tissue, and adhesions suprapatellar pouch and medial and lateral gutters. Intact, strongly healed quadriceps tendon repair and superior lateral bipartite patella repair with no visible cartilage step-off or irregularity. Posterior horn medial meniscus fraying and degenerative horizontal tear largely white zone. Intact ACL al though attachment was posterior in the notch. Intact lateral meniscus. Largely intact articular cartilage. Postprocedure manipulation achieved near?full range of motion -5 to 145 degrees with some spring back to 130 degrees. Procedure Description: In the operating room, general anesthesia was induced. The patient was positioned supine on the operating room table. All bony prominences were well-padded. Preoperative antibiotics were administered. The right knee was prepped and draped in the usual sterile fashion. The correct patient, procedure, and side of the procedure were all verified prior to incision. The knee was examined with the patient under anesthesia confirming stiff knee with fullness about the patella and suprapatellar pouch. There is no palpable defect or step-off on the quadriceps tendon or patellar fracture repair sites. The knee was gently guided into full terminal hyperextension, which was readily achieved and symmetric to contralateral side at -5 degrees. Flexion remained difficult and was guided with anterior drawer from 70 degrees slowly to 90 with steady pressure and relief of pressure at times to avoid undue pressure on the knee achieving may be 110-115 degrees of flexion with no further release. Decision was made as planned to proceed with arthroscopic lysis of adhesions. 10 cc of 0.5% bupivacaine containing epinephrine was infiltrated about the planned anteromedial and anterolateral knee arthroscopy portals. The portals were established and a complete diagnostic arthroscopy was performed with relevant findings detailed above. The mechanical shaver was used to remove abundant excessive scar tissue, synovium, and adhesions carefully and sequentially working in the suprapatellar pouch recreating regular suprapatellar anatomy as well as the medial and lateral gutters. Synovectomy was also continued in the anterior medial anterolateral compartments freeing up excessive fat pad and synovitis about the inferior patella and patellar tendon. A [place] was also used to free firm adhesions and complete release of both gutters and reach high into the suprapatellar pouch. Meniscal biter was used as a capsular punch to release suprapatellar thick adhesions that could not be otherwise released with all gutters, peripatellar space, and anterior intercondylar area is fully debrided of pathologic scar tissue synovium and adhesions. Hemostasis was readily achieved. The diagnostic arthroscopy revealed a posterior horn meniscus tear that was degenerative type largely white zone not amenable to repair but appropriate for partial meniscectomy. This was treated with the power shaver reaching carefully to the posterior horn debriding the unstable horizontal frayed edges of a small amount of white zone tissue to a stable margin preserving as much meniscal tissue as possible.. Arthroscopic fluid was drained from the knee. The knee was manipulated once again with excellent excursion of the patella medially and laterally in the same terminal hyperextension. Flexion remain difficult past 115 degrees. Additional relaxation, steady pressure alternating with significant pressure guarding the knee into deep flexion was able to achieve about 130 degrees of flexion. This position was maintained for period of time releasing the spring and the quadriceps muscle that kept flexion around 90 degrees. The arthroscope and instruments parents mention the cobbler alternated back in the knee with additional lysis of adhesions in the suprapatellar pouch. Arthroscopic fluid was again drained from the knee. Flexion was now guided again with deep steady pressure to about 145 degrees. Contralateral side flexion was about 155 degrees but this could not be achieved. This position was maintained under anesthesia as the knee would spring back to about 125 degrees flexion. The knee was then guided from 90 degrees of flexion 245 degrees flexion numerous times in deep flexion maintained to improve quadriceps muscle memory. The knee now had resting spring of about 130 degrees. Final arthroscopy confirmed no suprapatellar quadriceps or superior lateral patellar defect. The quadriceps tendon and patellar fracture repairs remain palpable with no step-off. Arthroscopic fluid was drained from the knee. The knee final motion was -5 to about 145 degrees flexion with a moderate spring back to about 130 degrees flexion. The anteromedial and anterolateral portals were closed in 3-0 Monocryl in a buried interrupted fashion. An 18-gauge needle was passed into the knee from superolateral into the suprapatellar pouch. 20 cc of 0.5% bupivacaine with epinephrine containing 4 mg of morphine was infiltrated into the knee. Xeroform and 4 x 4 gauze were applied over the portals followed by sterile soft roll. The knee was then wrapped gently with an OLGA comressive bandage. The patient awoke from anesthesia without complication and was transferred to the recovery room in a stable condition. The patient awoke from anesthesia without complication and was transferred to the recovery room in a stable condition.
--- NOTE | 2021-07-27 12:57 | W.ANESPOSTOP ---
Postoperative Evaluation Date, Time and Location Date Performed: 07/27/21 Time Performed: 12:57 Patient Location: PACU Vital Signs Most Recent Imported Vital Signs: Most Recent Vital Signs Temp Pulse Resp BP Pulse Ox 36.3 C L 70 18 162/89 H 99 07/27/21 10:38 07/27/21 10:38 07/27/21 10:38 07/27/21 10:38 07/27/21 10:38 Pain Score Most Recent Pain Score: Most Recent Pain Score Pain Level 0 07/27/21 10:38 Assessment Mental Status: Awake (Alert & Oriented to Patient Baseline) Airway and Respiratory Function: Patent airway with normal (patient baseline) respiratory exam Cardiovascular Function: Hemodynamically Stable Hydration Status: Adequately Hydrated Nausea & Vomiting: No Nausea or Vomiting Pain: Pt. Denies Any Pain Peripheral Nerve Block: Regional nerve block not resolved at time of post operative discharge (Appropriate per block goals) Postoperative Comments:: Patient seen in PACU earlier today and was doing well.
== END 2021-07-27 11:25 | disposition home or self-care (01) ==
PROVIDERS: Visit Provider Student in an Organized Health Care Education/Training Program
PROC: (CPT 29870; principal; 2021-07-27 07:30)
DX: M24.661 Ankylosis, right knee (principal); M23.221 Derangement of posterior horn of medial meniscus due to old tear or injury, right knee; M65.861 Other synovitis and tenosynovitis, right lower leg; G89.18 Other acute postprocedural pain
CPT/HCPCS: 29884; 29881; J0690; J1100; J1885; J2001; J2250; J2270; J2405

== ENCOUNTER → 2021-08-08 10:17 | Outpatient (BNVA) | payer MEDICARE, MEDICAID, SELFPAY | PROVIDERS: Visit Provider Student in an Organized Health Care Education/Training Program | DX: M24.661 Ankylosis, right knee (principal); S82.091D Other fracture of right patella, subsequent encounter for closed fracture with routine healing; X58.XXXD Exposure to other specified factors, subsequent encounter ==

== ENCOUNTER → 2021-09-05 14:00 | Outpatient (BNVA) | payer MEDICARE, MEDICAID, SELFPAY | PROVIDERS: Visit Provider Student in an Organized Health Care Education/Training Program | DX: M24.661 Ankylosis, right knee (principal); S82.091D Other fracture of right patella, subsequent encounter for closed fracture with routine healing; X58.XXXD Exposure to other specified factors, subsequent encounter ==

== ENCOUNTER 2022-02-07 03:42 | Outpatient (CLI) | payer MEDICARE, MEDICAID, SELFPAY ==
[2022-02-07 15:56] LABS: CREATININE 0.9 mg/dL (0.70-1.30); Calculated LDL 127 mg/dL (<100); Cholesterol 199 mg/dL (<200); HDL Cholesterol 49 mg/dL (40-60); Triglyceride 117 mg/dL (<150)
== END 2022-02-07 03:43 | disposition home or self-care (01) ==
LOC: LBO 03:42
PROVIDERS: PCP Nurse Practitioner Family; Visit Provider Nurse Practitioner Family
DX: I10 Essential (primary) hypertension (principal)
CPT/HCPCS: 36415; 80061; 82565

== ENCOUNTER 2022-07-05 06:30 | Day surgery (SDC) | payer MEDICARE, MEDICAID, SELFPAY ==
[2022-07-05 06:36] VITALS: BP 135/88; PULSE 89; RESP 16; TEMP 36.7; O2SAT 98
--- NOTE | 2022-07-05 07:02 | W.ANESPRE ---
General Info Date of Service Date Performed: 07/05/22 Height: 5 ft 8 in Weight: 71.2 kg Body Mass Index (BMI): 23.8 Surgical Procedure: Operation Date: 07/05/22 07:40 Proposed Procedure Side Surgeon p Cataract Extraction with IOL Implant Right Govind Davis MD Actual Procedure Side Surgeon p Cataract Extraction with IOL Implant Right Govind Davis MD Meds Allergies and Home Medications Allergies Allergy/AdvReac Type Severity Reaction Status Date / Time No Known Allergies Allergy Verified 07/05/22 06:35 Home Medication Medication Instructions Recorded lisinopril 40 mg tablet 40 mg PO DAILY #90 tabs 04/03/22 tadalafil 10 mg tablet 10 mg PO DAILY PRN sexual activity 04/03/22 #30 tabs hydrochlorothiazide 25 mg tablet 25 mg PO DAILY #90 tabs 05/09/22 Current Visit Medications: Current Medications Generic Name Dose Route Start Last Admin Trade Name Freq PRN Reason Stop Dose Admin Acetaminophen 1,000 mg 07/05/22 06:00 Acetaminophen 500 Mg Tab PO Q4H PRN PRN Miscellaneous Medication 0 ml 07/05/22 06:00 07/05/22 06:58 Prednisolone 1%, Moxifloxacin 0.5%, Nepafenac 0.1% 5ml Btl OD 1 drp DIRECTED BRIAN Administration Miscellaneous Medication 0 ml 07/05/22 06:00 Tropicam./Phenyleph. (1/2.5%) 5 Ml Btl OD DIRECTED BRIAN Tetracaine HCl 0 ml 07/05/22 06:00 Tetracaine 0.5% 4 Ml Btl OD DIRECTED BRIAN PFSH Active Problems Active Problems: Problem Status Onset Code Skin lesion L98.9 Erectile disorder, generalized, mild F52.21 Smoker unmotivated to quit F17.200 Hypertension I10 Arthrofibrosis of knee joint M24.669 Quadriceps tendon rupture 04/14/21 S76.119A Right patella fracture 04/14/21 S82.001A Medical History Medical History Tobacco abuse Surgical History Surgical History History of esophagogastroduodenoscopy (EGD) Tobacco Smoking/Tobacco Use Status: Current every day Tobacco Type: cigarettes Passive smoking exposure: Yes Second hand exposure: Yes Alcohol Alcohol Intake: current Alcohol intake frequency: a few times a month Alcohol type: beer Substance Use Substance use: Rarely Substance use type: marijuana Vital Signs and Lab Results Vital Signs Most Recent Vital Signs in EMR: Most Recent Vital Signs Temp Pulse Resp BP Pulse Ox 36.7 C 89 16 135/88 98 07/05/22 06:36 07/05/22 06:36 07/05/22 06:36 07/05/22 06:36 07/05/22 06:36 Lab Results Blood Type / Crossmatch: No Data to Display Complete Blood Count: No Data to Display Complete Metabolic Panel: No Data to Display Liver Function Panel: No Data to Display Coagulation Panel: No Data to Display Cardiac Panel: No Data to Display Arterial Blood Gas: No Data to Display Venous Blood Gas: No Data to Display Pancreas Panel: No Data to Display Thyroid Panel: No Data to Display Infectious Disease: No Data to Display Blood Cultures: No Data to Display Toxicology Panel: No Data to Display Anesthesia Assessment and Plan Anesthesia History Personal History: No History of Anesthesia Complications Family History: No Family History of Anesthesia Complications Exercise Tolerance Exercise Tolerance: Metabolic Equivalents>4 Pertinent Negatives Pertinent Negatives: No Symptoms of GERD, No Major Cardiovascular Symptoms or Complaints, No Major Pulmonary Symptoms or Complaints and No History of CVA/TIA Cardiac & Pulmonary Exam Cardiac Exam: Normal S1/S2 Heart Sounds Pulmonary Exam: Clear Bilateral Breath Sounds Implantable Cardiac Device Does patient have a Pacemaker or an ICD?: No Airway Exam Known Difficult Airway: No Mallampati Class: 2 Mouth Opening: Normal (> 3cm) Thyromental Distance: Greater than 3 cm Neck Range of Motion: Full ROM Neck Circumference: Normal Teeth Condition: Normal Dentition ASA Classification ASA Score: ASA 2 Emergency Case?: No NPO Status NPO Status: NPO Clears >2 hours, Solids >8 hours Anesthesia Plan Resuscitation Status: Full Code Anesthesia Technique: MAC Anesthesia Airway Planned: Natural Airway Monitors Used: Standard Monitors
[2022-07-05 07:05] VITALS: BMI 23.8
[2022-07-05] MEDS: Povidone-Iodine Ophth 30 ML BTL (07:29)
[2022-07-05] MEDS: Lidocaine 2% Jelly 6 ML SYR (07:29)
[2022-07-05] MEDS: Tetracaine 0.5% 4 ML BTL OD (07:29)
[2022-07-05] MEDS: Balanced Salt Soln.-PLUS 500 ML BAG (07:31)
[2022-07-05] MEDS: Trypan Blue 0.06% 0.5 ML SYR (07:38)
[2022-07-05 08:00] VITALS: BP 131/81; PULSE 77; RESP 16; TEMP 36.3; O2SAT 96
--- NOTE | 2022-07-05 08:01 | W.PM.DSUDISC ---
Discharge Plan Disposition Patient Disposition: HOME Condition: Good Discharge Details Attending Provider: Govind Davis Primary Care Provider: Davon Reinoso Home Meds and New Rx's Prescriptions: No Action lisinopril 40 mg tablet 40 mg PO DAILY Qty: 90 3RF tadalafil 10 mg tablet 10 mg PO DAILY PRN (Reason: sexual activity) Qty: 30 1RF Rx Instructions: administer approximately 30min before sexual activity; do not use more than 1 dose per 24hrs hydrochlorothiazide 25 mg tablet 25 mg PO DAILY Qty: 90 3RF Discharge Instructions Stand Alone Forms: Post-op Topical Cataract, Bassem Stout (DSU) Discharge Orders Discharge Orders: Discharge Order (Routine); Ordered 07/05/22 Ordered By: Govind Davis DS: Diagnosis Discharge Diagnosis (1) Nuclear sclerotic cataract of right eye: Status: Resolved (2) Posterior subcapsular age-related cataract, right eye: Status: Resolved
--- NOTE | 2022-07-05 08:03 | ROE_ITS ---
Date of service: 07/05/22 Time of Service: 08:03 Operative Note Operative Note DATE OF PROCEDURE: 07/05/22 PRE-OP DIAGNOSIS: Dense nuclear/posterior subcapsular cataract, right eye Poor red reflex, right eye secondary to cataract POST-OP DIAGNOSIS: same Significant generalized zonular laxity, likely due to high myopia PROCEDURE: Cataract extraction using phacoemulsification with intraocular lens implantation, right eye, using capsular staining with Vision Blue Insertion of capsular tension ring SURGEON: Govind Davis ANESTHESIA TYPE: Local By Surgeon and MAC Refer to Anesthesia Record PATHOLOGY: none sent COMPLICATIONS: None Patient was transported to: same day Patient's condition: stable Implants: [employer] / [employer] Tecnis [id number] Morcher Type 15B capsular tension ring Indications: Progressive visual loss due to cataract, right eye Procedure Description: CATARACT SURGERY OPERATIVE REPORT PREOPERATIVE DIAGNOSIS: 1. Dense nuclear/posterior subcapsular cataract, right eye 2. Poor red reflex secondary to #1 3. High myopia POSTOPERATIVE DIAGNOSIS: Same OPERATION: 1. Cataract extraction using phacoemulsification with posterior chamber intraocular lens implant, right eye. 2. Capsular staining with Vision Blue 3. Insertion of capsular tension ring IOL: IOL Cotton Tipper/Model: Frank & Frank / KEVYN Tecnis [id number] IOL Power: + 11.0 diopters IOL Serial Number: [id number] Optic Diameter: 6.0mm Haptic/Overall Diameter: 13.0mm PHACO INFO: Todd [employer] Vision System with OZil and Active [employer]uidics Cumulative Dispersed Energy (CDE): 20.38 seconds SURGEON: Govind Davis MD, ERENDIRA ANESTHESIA: Monitored Anesthesia Care (MAC), with local sub-tenon's anesthetic infiltration COMPLICATIONS: None SPECIMENS: None INDICATIONS FOR PROCEDURE: The patient is a 67-year-old gentleman with history of high myopia who has developed a significant nuclear/posterior subcapsular cataract in the right eye. Visual acuity measures 2400 in the presence of dense posterior subcapsular cataract with moderate to severe nuclear brunescent. The option of cataract surgery was offered to the patient and he wished to proceed. PROCEDURE: The correct surgical eye was identified and marked as the right eye and the pupil was dilated in the preoperative area using mydriatics and cycloplegics. The dilated pupil size was 5.5 mm. Oral sedation was administered in the form of an Imprimis MKO Melt (midazolam 3mg/ketamine 25mg/ondansetron 2mg). The patient elected to proceed without oral sedation. The patient was brought to the operating room where cardiopulmonary monitoring was instituted and surgical time-out was performed, confirming the correct operative eye and IOL power. Topical anesthesia was administered and ophthalmic povidone-iodine 5% was instilled into the conjunctival fornices. Lidocaine gel was applied to the cornea and the elio-ocular area was prepped with Betadine 10% solution and draped in the usual sterile fashion for intraocular surgery, including an aperture drape. A Tegaderm transparent film dressing was cut in half and used to cover the lashes and lid margins. Care was taken to sequester the lashes and lid margins under the Tegaderm dressing. A lid speculum was placed between the lids of the operative eye and the [employer] operating microscope was maneuvered into position. Christoph scissors were then used to make a conjunctival buttonhole approximately 6mm posterior to the limbus in the inferonasal quadrant. Blunt dissection was carried out to expose bare sclera, and a blunt-tipped sub-tenon?s anesthesia cannula was introduced and passed posteriorly along the globe where non- preserved plain lidocaine was injected into posterior sub-Tenon?s space. A sideport knife was used to make a paracentesis port inferotemporally. Intraoc ular phenylephrine/lidocaine was injected into the anterior chamber. Air was injected into the anterior chamber, followed by Vision Blue, which was painted over the anterior capsule and then irrigated out with BSS. The anterior chamber was filled with viscoelastic. A keratome knife was used to create a 2-plane near clear corneal tunnel extending approximately 2 mm into clear cornea superior temporally.. A flap was raised on the anterior capsule and capsulorhexis forceps were used to complete a continuous curvilinear capsulorhexis of 5.0 mm. The anterior chamber was noted to be quite deep, with a thin anterior capsule, and significant zonular laxity was noted during creation of the capsulorrhexis. Balanced salt solution was then used to perform cortical cleaving hydrodissection and nuclear hydrodelineation until the lens could be freely rotated within the capsular bag. The lens nucleus was then disassembled and removed within the capsular bag and iris plane using phacoemulsification. Significant zonular laxity was noted. Residual cortical material was removed using the I/A handpiece. The posterior capsule was carefully polished to remove as much residual lens epithelial cells as safely possible. There was a circular central residual posterior subcapsular plaque which could not be safely removed despite extensive polishing. The capsular bag was then inflated and the an terior chamber deepened with viscoelastic. Capsulorhexis had decreased to about 4.5 mm after removal of the thick lens. A Morcher Type 15B capsular tension ring was then carefully inserted into the capsular bag to prevent capsular phimosis and support the weak zonules. The lens implant described above was inserted into the capsular bag using the [employer] [place] Injector. A Kuglen hook was used to dial the IOL into position. Residual viscoelastic was then removed first from posterior to the IOL, then from the anterior chamber using the I/A handpiece. The lens implant was noted to center nicely within the capsular bag. The incisions were stromally hydrated, and the anterior chamber was reformed using BSS. Then 0.5cc of moxifloxacin 1.0mg/ml were injected into the capsular bag and anterior chamber. The incisions were checked with a Weck spear and found to be secure. Several drops of ophthalmic povidone-iodine 5% were then applied to the eye followed by two drops of Imprimis combination prednisolone/moxifloxacin/nepafenac solution. The drapes were removed and a clear plastic protective eye shield was placed over the eye. The patient was then returned to Same Day Surgery in stable condition.
--- NOTE | 2022-07-05 08:23 | W.ANESPOSTOP ---
Postoperative Evaluation Date, Time and Location Date Performed: 07/05/22 Time Performed: 08:12 Patient Location: Day Surgery Unit Vital Signs Most Recent Imported Vital Signs: Most Recent Vital Signs Temp Pulse Resp BP Pulse Ox 36.3 C L 77 16 131/81 96 07/05/22 08:00 07/05/22 08:00 07/05/22 08:00 07/05/22 08:00 07/05/22 08:00 Pain Score Most Recent Pain Score: Most Recent Pain Score Pain Level 0 07/05/22 08:00 Assessment Mental Status: Awake (Alert & Oriented to Patient Baseline) Airway and Respiratory Function: Patent airway with normal (patient baseline) respiratory exam Cardiovascular Function: Hemodynamically Stable Hydration Status: Adequately Hydrated Nausea & Vomiting: No Nausea or Vomiting Pain: Pt. Denies Any Pain Peripheral Nerve Block: Patient did not receive a nerve block
[2022-07-05 08:29] VITALS: BP 105/95; PULSE 75; RESP 16; TEMP 36.9; O2SAT 95
== END 2022-07-05 08:38 | disposition home or self-care (01) ==
LOC: SUR 06:30
PROVIDERS: PCP Nurse Practitioner Family; Visit Provider Ophthalmology
PROC: (CPT 66982; principal; 2022-07-05 07:30)
DX: H25.041 Posterior subcapsular polar age-related cataract, right eye (principal); H57.03 Miosis; I10 Essential (primary) hypertension; F17.210 Nicotine dependence, cigarettes, uncomplicated
CPT/HCPCS: 66982; V2632

== ENCOUNTER 2023-03-17 07:27 | Day surgery (SDC) | payer OTHER, MEDICAID, SELFPAY ==
--- NOTE | 2023-03-17 06:31 | ANES.PREOP_ITS ---
General Info Date of Service Date Performed: 03/17/23 Height: 5 ft 8 in Weight: 73.198 kg Body Mass Index (BMI): 24.5 Surgical Procedure: Operation Date: 03/17/23 09:40 Proposed Procedure Side Surgeon p Cataract Extraction with IOL Implant Left Govind Davis MD Meds Allergies and Home Medications Allergies Allergy/AdvReac Type Severity Reaction Status Date / Time No Known Allergies Allergy Verified 03/06/23 12:59 Home Medication Medication Instructions Recorded lisinopril 40 mg tablet 40 mg PO DAILY #90 tabs 04/03/22 hydrochlorothiazide 25 mg tablet 25 mg PO DAILY #90 tabs 05/09/22 tadalafil 10 mg tablet 10 mg PO DAILY PRN sexual activity 10/24/22 #90 tabs Current Visit Medications: Current Medications Generic Name Dose Route Start Last Admin Trade Name Freq PRN Reason Stop Dose Admin Acetaminophen 1,000 mg 03/17/23 06:00 Acetaminophen 500 Mg Tab PO Q4H PRN PRN Miscellaneous Medication 0 ml 03/17/23 06:00 Tropicam./Phenyleph. (1/2.5%) 5 Ml Btl OS DIRECTED BRIAN Miscellaneous Medication 0 ml 03/17/23 06:00 Prednisolone 1%, Moxifloxacin 0.5%, Nepafenac 0.1% 5ml Btl OS DIRECTED BRIAN Tetracaine HCl 0 ml 03/17/23 06:00 Tetracaine 0.5% 4 Ml Btl OS DIRECTED [facility] PFSH Active Problems Active Problems: Problem Status Onset Code Posterior subcapsular age-related cataract of left eye H25.042 Nuclear age-related cataract, left eye H25.12 Quadriceps tendon rupture 04/14/21 S76.119A Right patella fracture 04/14/21 S82.001A Arthrofibrosis of knee joint M24.669 Hypertension I10 Smoker unmotivated to quit F17.200 Erectile disorder, generalized, mild F52.21 Skin lesion L98.9 Nuclear sclerotic cataract of right eye H25.11 Posterior subcapsular age-related cataract, right eye H25.041 Medical History Medical History (Updated 03/17/23 @ 07:55 by Tess Mckeon RN) Hx of fracture of patella Tobacco abuse Surgical History Surgical History (Updated 03/14/23 @ 15:27 by Jazmyne Parson RN) History of cataract surgery History of esophagogastroduodenoscopy (EGD) Tobacco Smoking/Tobacco Use Status: Current every day Tobacco Type: cigarettes Passive smoking exposure: Yes Second hand exposure: Yes Alcohol Alcohol Intake: current Alcohol intake frequency: a few times a month Alcohol type: beer Substance Use Substance use: Rarely Substance use type: marijuana Vital Signs and Lab Results Lab Results Blood Type / Crossmatch: No Data to Display Complete Blood Count: No Data to Display Complete Metabolic Panel: No Data to Display Liver Function Panel: No Data to Display Coagulation Panel: No Data to Display Cardiac Panel: No Data to Display Arterial Blood Gas: No Data to Display Venous Blood Gas: No Data to Display Pancreas Panel: No Data to Display Thyroid Panel: No Data to Display Infectious Disease: No Data to Display Blood Cultures: No Data to Display Toxicology Panel: No Data to Display Anesthesia Assessment and Plan Anesthesia History Personal History: No History of Anesthesia Complications Family History: No Family History of Anesthesia Complications Exercise Tolerance Exercise Tolerance: Metabolic Equivalents>4 Cardiac & Pulmonary Exam Cardiac Exam: Normal S1/S2 Heart Sounds Pulmonary Exam: Clear Bilateral Breath Sounds Implantable Cardiac Device Does patient have a Pacemaker or an ICD?: No Airway Exam Known Difficult Airway: No Mallampati Class: 2 Mouth Opening: Normal (> 3cm) Thyromental Distance: Greater than 3 cm Neck Range of Motion: Full ROM Neck Circumference: Normal Teeth Condition: Normal Dentition ASA Classification ASA Score: ASA 2 Emergency Case?: No NPO Status NPO Status: NPO Clears >2 hours, Solids >8 hours Anesthesia Plan Resuscitation Status: Full Code Anesthesia Technique: MAC Anesthesia Airway Planned: Natural Airway Monitors Used: Standard Monitors Preoperative Comments:: 67 yo male for repeat cataract. previous with MKO. would like MKO again. Sig PMHx: HTN (lisinopril, HCTZ), smoker, occ EtOH. Previous Anes: - EGD, glide 3 grade 2a. - quad rupture, mac 3 grade 1.
[2023-03-17 07:47] VITALS: BP 129/81; PULSE 75; RESP 16; TEMP 36.6; O2SAT 96
[2023-03-17] MEDS: Tropicam./Phenyleph. (1/2.5%) 5 ML BTL OS ×3 (07:54→08:06)
[2023-03-17 08:02] VITALS: BMI 24.5
[2023-03-17] MEDS: Balanced Salt Soln.-PLUS 500 ML BAG (09:10)
[2023-03-17] MEDS: Tetracaine 0.5% 4 ML BTL OS (09:10)
[2023-03-17] MEDS: Lidocaine 1% Pres-Free 5 ML VIAL (09:11)
[2023-03-17] MEDS: Duovisc Viscoelastic System EACH 1 EACH (09:11)
[2023-03-17] MEDS: Phenylephrine/Lidocaine (15/10) MG/ML 1 ML VIAL (09:12)
[2023-03-17] MEDS: Povidone-Iodine Ophth 30 ML BTL (09:12)
[2023-03-17 09:36] VITALS: BP 132/83; PULSE 68; RESP 16; TEMP 36.6; O2SAT 96
--- NOTE | 2023-03-17 09:37 | ROE_ITS ---
Date of service: 03/17/23 Time of Service: 09:37 Operative Note Operative Note DATE OF PROCEDURE: 03/17/23 PRE-OP DIAGNOSIS: Nuclear/posterior subcapsular cataract, left eye POST-OP DIAGNOSIS: same Severe generalized zonular laxity, likely due to high myopia PROCEDURE: Cataract extraction using phacoemulsification with intraocular lens implant, left eye Implantation of capsular tension ring, left eye SURGEON: Govind Davis ANESTHESIA TYPE: Local By Surgeon and MAC Refer to Anesthesia Record PATHOLOGY: none sent COMPLICATIONS: None Patient was transported to: same day Patient's condition: stable Implants: Frank and Frank Tecnis Eyhance [id number] Morcher Type 15A capsular tension ring Indications: Progressive decreased vision due to cataract, left eye Procedure Description: CATARACT SURGERY OPERATIVE REPORT PREOPERATIVE DIAGNOSIS: 1. Nuclear/posterior subcapsular cataract, left eye POSTOPERATIVE DIAGNOSIS: Same OPERATION: 1. Cataract extraction using phacoemulsification with posterior chamber intraocular lens implant, left eye. 2. Insertion of capsular tension ring, Morcher Type 15A, left eye IOL: IOL Director Quality Assurance/Model: Frank & Frank Tecnis Eyhance [id number] IOL Power: + 10.0 diopters IOL Serial Number: [id number] Optic Diameter: 6.0 mm Haptic/Overall Diameter: 13.0 mm PHACO INFO: Todd Centurion Vision System with OZil and Active Fluidics Cumulative Dispersed Energy (CDE): 6.72 seconds SURGEON: Govind Davis MD, ERENDIRA ANESTHESIA: Monitored A [facility] (MAC), with local sub-tenon's anesthetic infiltration COMPLICATIONS: None SPECIMENS: None INDICATIONS FOR PROCEDURE: The patient is a 67-year-old gentleman who previously had a dense nuclear/posterior subcapsular cataract in the right eye, removed in 2021. Intraoperatively, he was noted to have severe zonular laxity, requiring the use of a capsular tension ring. 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 He now presents for cataract surgery in the left eye. See clinical chart for details. PROCEDURE: The correct surgical eye was identified and marked as the left eye and the pupil was dilated in the preoperative area using mydriatics and cyclop legics. The dilated pupil size was 6.5 mm. Oral sedation was administered in the form of an Imprimis MKO Melt (midazolam 3mg/ketamine 25mg/ondansetron 2mg). The patient was brought to the operating room where cardiopulmonary monitoring was instituted and surgical time-out was performed, confirming the correct operative eye and IOL power. Topical anesthesia was administered and ophthalmic povidone-iodine 5% was instilled into the conjunctival fornices. Lidocaine gel was applied to the cornea and the elio-ocular area was prepped with Betadine 10% solution and draped in the usual sterile fashion for intraocular surgery, including an aperture drape. A Tegaderm transparent film dressing was cut in half and used to cover the lashes and lid margins. Care was taken to sequester the lashes and lid margins under the Tegaderm dressing. A lid speculum was placed between the lids of the operative eye and the Todd TVShow TimeOR Revalia operating microscope was maneuvered into position. Christoph scissors were then used to make a conjunctival buttonhole approximately 6mm posterior to the limbus in the inferonasal quadrant. Blunt dissection was carried out to expose bare sclera, and a blunt-tipped sub-tenon?s anesthesia cannula was introduced and passed posteriorly along the globe where non- preserved plain lidocaine was injected into posterior sub-Tenon?s space. A sideport knife was used to make a paracentesis port superiorly/superiortemporally. Intraocular phenylephrine/lidocaine was injected int the anterior chamber.. The anterior chamber was filled with viscoelastic. A keratome knife was used to construct a 2-plane near-clear corneal tunnel extending 2.0mm into clear cornea temporally. A flap was raised on the anterior capsule and capsulorhexis forceps were used to complete a continuous curvilinear capsulorhexis of 5.0 mm. The anterior capsule was noted to be quite thin with significant generalized zonular laxity. Balanced salt solution was then used to perform cortical cleaving hydrodissection and nuclear hydrodelineation until the lens could be freely rotated within the capsular bag. The lens nucleus was then disassembled and removed within the capsular bag and iris plane using phacoemulsification. Residual cortical material was removed using the 45-degree angled silicone I/A tip with 0.3mm port. The posterior capsule was carefully polished to remove as much residual lens epithelial cells as safely possible. The anterior capsulorrhexis was noted to have decreased in diameter to 4 to 4.5 mm, likely due to the generalized zonular laxity. The capsular bag was then inflated and the anterior chamber deepened with viscoelastic. . A Morcher Type 15A capsular tension ring was then inserted into the capsular bag without difficulty. The lens implant described above was inserted into the capsular bag using the Frank and Frank Simplicity pre-loaded injector. . A Kuglen hook was used to dial the IOL into position. Residual viscoelastic was then removed first from posterior to the IOL, then from the anterior chamber using the I/A handpiece. The lens implant was noted to center nicely within the capsular bag with the haptics oriented at 9 and 3:00 . The incisions were stromally hydrated, and the anterior chamber was reformed using BSS. Then 0.5cc of moxifloxacin 1.0mg/ml were injected into the capsular bag and anterior chamber. The incisions were checked with a Weck spear and found to be secure. Several drops of ophthalmic povidone-iodine 5% were then applied to the eye followed by two drops of Imprimis combination prednisolone/moxifloxacin/nepafenac solution. The drapes were removed and a clear plastic protective eye shield was placed over the eye. The patient was then returned to Same Day Surgery in stable condition.
--- NOTE | 2023-03-17 09:43 | W.PM.DSUDISC ---
Date of service: 03/17/23 Time of Service: 09:44 Discharge Plan Disposition Patient Disposition: Home Discharge Details Attending Provider: Govnid Davis Primary Care Provider: Davon Reinoso Home Meds and New Rx's Prescriptions: No Action lisinopril 40 mg tablet 40 mg PO DAILY Qty: 90 3RF hydrochlorothiazide 25 mg tablet 25 mg PO DAILY Qty: 90 3RF tadalafil 10 mg tablet 10 mg PO DAILY PRN (Reason: sexual activity) Qty: 90 1RF Rx Instructions: administer approximately 30min before sexual activity; do not use more than 1 dose per 24hrs Discharge Instructions Stand Alone Forms: Post-op Topical Cataract, Bassem Stout (DSU) Discharge Orders Discharge Orders: Discharge Order (Routine); Ordered 03/17/23 Ordered By: Govind Davis DS: Diagnosis Discharge Diagnosis (1) Nuclear age-related cataract, left eye: Status: Resolved (2) Posterior subcapsular age-related cataract of left eye: Status: Resolved
--- NOTE | 2023-03-17 10:01 | W.ANESPOSTOP ---
Postoperative Evaluation Date, Time and Location Date Performed: 03/17/23 Time Performed: 09:36 Patient Location: Day Surgery Unit Vital Signs Most Recent Imported Vital Signs: Most Recent Vital Signs Temp Pulse Resp BP Pulse Ox 36.6 C 68 16 132/83 96 03/17/23 09:36 03/17/23 09:36 03/17/23 09:36 03/17/23 09:36 03/17/23 09:36 Pain Score Most Recent Pain Score: Most Recent Pain Score Pain Level 0 03/17/23 09:36 Assessment Mental Status: Awake (Alert & Oriented to Patient Baseline) Airway and Respiratory Function: Patent airway with normal (patient baseline) respiratory exam Cardiovascular Function: Hemodynamically Stable Hydration Status: Adequately Hydrated Nausea & Vomiting: No Nausea or Vomiting Pain: Pt. Denies Any Pain Peripheral Nerve Block: Patient did not receive a nerve block
[2023-03-17 10:04] VITALS: BP 123/90; PULSE 77; RESP 16; TEMP 36.6; O2SAT 94
== END 2023-03-17 10:19 | disposition home or self-care (01) ==
LOC: SUR 07:28
PROVIDERS: PCP Nurse Practitioner Family; Visit Provider Ophthalmology
PROC: (CPT 66982; principal; 2023-03-17 09:30)
DX: H25.12 Age-related nuclear cataract, left eye (principal); H25.042 Posterior subcapsular polar age-related cataract, left eye; I10 Essential (primary) hypertension; F17.200 Nicotine dependence, unspecified, uncomplicated; Z98.41 Cataract extraction status, right eye; H52.31 Anisometropia
CPT/HCPCS: 66982; V2632

== ENCOUNTER 2023-04-18 10:29 | Day surgery (SDC) | payer OTHER, MEDICAID, SELFPAY ==
--- NOTE | 2023-04-18 07:13 | W.PREOPHP ---
Assessment and Plan Assessment and plan (1) Mechanical complication due to intraocular lens implant: Status: Acute Assessment and plan: Assessment: Unwanted refractive error, following cataract surgery with lens implant, left eye. Plan: Piggyback intraocular lens implant, left eye History of Present Illness History of Present Illness Chief Complaint: Blurred near vision, left eye Narrative: Bilateral cataracts, right eye worse than the left. He underwent cataract surgery in the right eye in June 2022 and postoperatively did well, achieving uncorrected visual acuity of 20/20. Underwent cataract surgery in the left eye on 03/17/2023. Postoperatively, distance visual acuity is 20/20 uncorrected, but he prefers to have better near visual acuity. Surgery is undertaken in attempt to improve the patient's near visual acuity. Intraoperatively, he was noted to have significant zonular laxity in both eyes, requiring the use of capsular tension ring. Intraocular lens exchange is not a good option in this situation. A piggyback intraocular lens implant is planned to improve the patient's near vision in the left eye. Review of Systems All systems reviewed & are unremarkable except as noted in HPI and below PFSH All Active Problems (Updated 04/18/23 @ 11:40 by Govind Davis MD) Mechanical complication due to intraocular lens implant (Acute) Quadriceps tendon rupture (Acute 04/14/21) s/p patella ORIF; quad tendon repair DOS: 04/19/2021 Right patella fracture (Acute 04/14/21) s/p patella ORIF; quad tendon repair DOS: 04/19/2021 Arthrofibrosis of knee joint (Acute) Hypertension (Chronic) Smoker unmotivated to quit (Acute) Erectile disorder, generalized, mild (Acute) Skin lesion (Acute) Was removed by derm. Actinic keratosis was the diagnosis. Medical History Hx of fracture of patella Tobacco abuse Surgical History History of cataract surgery History of esophagogastroduodenoscopy (EGD) Family History Mother Personal history of malignant neoplasm BREAST Father No problems noted. Sister No problems noted. Brother No problems noted. Grandmother No problems noted. Social History Smoking/Tobacco Use Status: Current every day Tobacco Type: cigarettes Tobacco: How many years used: 20 Quit status: considering quitting Second Hand Exposure: Yes Smoking risk assessment performed?: Yes Alcohol Intake: current Alcohol Intake frequency: a few times a month Alcohol type: beer Drug use: Rarely Substance use type: marijuana Household members: significant other and other Details: client Communication Needs: None Pets and animals: Yes Pets and animals: dog(s) Sexually active: Yes Do you think of yourself as: straight/heterosexual Current gender identity: male What is your relationship status?: living with partner How often do you talk on the phone with friends or family?: three or more times per week How often do you get together with friends or relatives?: twice per week How often do you attend confucianism or synagogue services?: decline to answer Do you belong to any clubs or organized social groups?: no Panel score (0-1 are the most socially isolated patients): 2 What type of physical activity do you participate in: bicycling Duration: 15-30 minutes/day Frequency: 1-2 times per week Mirna/Roman Catholic: No preference Seatbelt use: always Helmet use: No Drive intox or ride w/intox warehouse driver: No Do you feel safe at home: Yes Do you feel safe in your relationship?: Yes Meds Allergies and Home Medications Allergies Allergy/AdvReac Type Severity Reaction Status Date / Time No Known Allergies Allergy Verified 04/17/23 11:09 Home Medications Medication Instructions Recorded Confirmed Type lisinopril 40 mg tablet 40 mg PO DAILY #90 tabs 04/03/22 04/18/23 Rx hydrochlorothiazide 25 mg tablet 25 mg PO DAILY #90 tabs 05/09/22 04/18/23 Rx tadalafil 10 mg tablet 10 mg PO DAILY PRN sexual activity 10/24/22 04/18/23 Rx #90 tabs Exam Eyes Other: Most recent ophthalmic examination reveals uncorrected distance visual acuity of 20/20 in each eye. Extraocular Justin is normal. Slit-lamp examination reveals a well-positioned PCIOL in both eyes, with posterior capsulotomy in the right eye. In the left eye, the posterior capsule was clear. 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 Dilated funduscopic examination reveals disc cupping of 0.3 OU with peripapillary atrophy and a tilted optic nerve. The remainder of the macula, retina, peripheral retina and vitreous is normal. Resp Auscultation: clear to auscultation bilaterally Cardio Rate: regular rate Rhythm: regular rhythm
[2023-04-18] MEDS: Tropicam./Phenyleph. (1/2.5%) 5 ML BTL OS ×3 (10:50→11:07)
[2023-04-18 10:54] VITALS: BP 140/78; PULSE 69; RESP 16; TEMP 36.6; O2SAT 97
--- NOTE | 2023-04-18 11:15 | ANES.PREOP_ITS ---
General Info Date of Service Date Performed: 04/18/23 Height: 5 ft 8 in Weight: 72.9 kg Body Mass Index (BMI): 24.4 Surgical Procedure: Operation Date: 04/18/23 12:10 Proposed Procedure Side Surgeon p Secondary Implant Left Govind Davis MD Meds Allergies and Home Medications Allergies Allergy/AdvReac Type Severity Reaction Status Date / Time No Known Allergies Allergy Verified 04/17/23 11:09 Home Medication Medication Instructions Recorded lisinopril 40 mg tablet 40 mg PO DAILY #90 tabs 04/03/22 hydrochlorothiazide 25 mg tablet 25 mg PO DAILY #90 tabs 05/09/22 tadalafil 10 mg tablet 10 mg PO DAILY PRN sexual activity 10/24/22 #90 tabs Current Visit Medications: Current Medications Generic Name Dose Route Start Last Admin Trade Name Freq PRN Reason Stop Dose Admin Acetaminophen 1,000 mg 04/18/23 06:00 Acetaminophen 500 Mg Tab PO 05/18/23 05:59 Q4H PRN PRN Balanced Salt Solution 500 ml 04/18/23 06:00 Balanced Salt Soln.-Plus 500 Ml Bag OP 05/18/23 05:59 DIRECTED BRIAN Miscellaneous Medication 0 ml 04/18/23 06:00 Prednisolone 1%, Moxifloxacin 0.5%, Nepafenac 0.1% 5ml Btl OS 05/18/23 05:59 DIRECTED BRIAN Miscellaneous Medication 0 ml 04/18/23 06:00 04/18/23 11:07 Tropicam./Phenyleph. (1/2.5%) 5 Ml Btl OS 05/18/23 05:59 1 drp DIRECTED BRIAN Administration Tetracaine HCl 0 ml 04/18/23 06:00 Tetracaine 0.5% 4 Ml Btl OS 05/18/23 05:59 DIRECTED BRIAN PFSH Active Problems Active Problems: Problem Status Onset Code Quadriceps tendon rupture 04/14/21 S76.119A Right patella fracture 04/14/21 S82.001A Arthrofibrosis of knee joint M24.669 Hypertension I10 Smoker unmotivated to quit F17.200 Erectile disorder, generalized, mild F52.21 Skin lesion L98.9 Nuclear sclerotic cataract of right eye H25.11 Posterior subcapsular age-related cataract, right eye H25.041 Nuclear age-related cataract, left eye H25.12 Posterior subcapsular age-related cataract of left eye H25.042 Medical History Medical History Hx of fracture of patella Tobacco abuse Surgical History Surgical History History of cataract surgery History of esophagogastroduodenoscopy (EGD) Tobacco Smoking/Tobacco Use Status: Current every day Tobacco Type: cigarettes Passive smoking exposure: Yes Second hand exposure: Yes Alcohol Alcohol Intake: current Alcohol intake frequency: a few times a month Alcohol type: beer Substance Use Substance use: Rarely Substance use type: marijuana Vital Signs and Lab Results Vital Signs Most Recent Vital Signs in EMR: Most Recent Vital Signs Temp Pulse Resp BP Pulse Ox 36.6 C 69 16 140/78 97 04/18/23 10:54 04/18/23 10:54 04/18/23 10:54 04/18/23 10:54 04/18/23 10:54 Lab Results Blood Type / Crossmatch: 2 No Data to Display Complete Blood Count: No Data to Display Complete Metabolic Panel: No Data to Display Liver Function Panel: No Data to Display Coagulation Panel: No Data to Display Cardiac Panel: No Data to Display Arterial Blood Gas: No Data to Display Venous Blood Gas: No Data to Display Pancreas Panel: No Data to Display Thyroid Panel: No Data to Display Infectious Disease: No Data to Display Blood Cultures: No Data to Display Toxicology Panel: No Data to Display Anesthesia Assessment and Plan Anesthesia History Personal History: No History of Anesthesia Complications Family History: No Family History of Anesthesia Complications Exercise Tolerance Exercise Tolerance: Metabolic Equivalents>4 Pertinent Negatives Pertinent Negatives: No Symptoms of GERD Cardiac & Pulmonary Exam Cardiac Exam: Normal S1/S2 Heart Sounds Pulmonary Exam: Clear Bilateral Breath Sounds Implantable Cardiac Device Does patient have a Pacemaker or an ICD?: No Airway Exam Known Difficult Airway: No Mallampati Class: 2 Mouth Opening: Normal (> 3cm) Thyromental Distance: Greater than 3 cm Neck Range of Motion: Full ROM Neck Circumference: Normal Teeth Condition: Normal Dentition ASA Classification ASA Score: ASA 2 Emergency Case?: No NPO Status NPO Status: NPO Clears >2 hours, Solids >8 hours Anesthesia Plan Resuscitation Status: Full Code Anesthesia Technique: MAC Anesthesia Airway Planned: Natural Airway Monitors Used: Standard Monitors Preoperative Comments:: O recent changes. Wants mko again
[2023-04-18 11:18] VITALS: BMI 24.4
[2023-04-18] MEDS: Lidocaine 1% Pres-Free 5 ML VIAL (11:57)
[2023-04-18] MEDS: Phenylephrine/Lidocaine (15/10) MG/ML 1 ML VIAL (12:06)
--- NOTE | 2023-04-18 12:16 | W.PM.DSUDISC ---
Date of service: 04/18/23 Time of Service: 12:16 Discharge Plan Disposition Patient Disposition: Home Discharge Details Attending Provider: Govind Davis Primary Care Provider: Davon Reinoso Home Meds and New Rx's Prescriptions: No Action lisinopril 40 mg tablet 40 mg PO DAILY Qty: 90 3RF hydrochlorothiazide 25 mg tablet 25 mg PO DAILY Qty: 90 3RF tadalafil 10 mg tablet 10 mg PO DAILY PRN (Reason: sexual activity) Qty: 90 1RF Rx Instructions: administer approximately 30min before sexual activity; do not use more than 1 dose per 24hrs Discharge Instructions Stand Alone Forms: Post-op Topical Cataract, Bassem Stout (DSU) Discharge Orders Discharge Orders: Discharge Order (Routine); Ordered 04/18/23 Ordered By: Govind Davis DS: Diagnosis Discharge Diagnosis (1) Mechanical complication due to intraocular lens implant: Status: Resolved
--- NOTE | 2023-04-18 12:16 | W.PM.OP ---
Date of service: 04/18/23 Time of Service: 12:16 Operative Note Operative Note DATE OF PROCEDURE: 04/18/23 PRE-OP DIAGNOSIS: Mechanical complication of intraocular lens implant, left eye, unwanted refractive error, initial encounter, T85.29XA POST-OP DIAGNOSIS: same PROCEDURE: Piggyback intraocular lens implant, left eye SURGEON: Govind Davis ANESTHESIA TYPE: Local By Surgeon and MAC Refer to Anesthesia Record PATHOLOGY: none sent COMPLICATIONS: None Patient was transported to: same day Patient's condition: stable Implants: Frank and Frank Sensar AR40E +3.0 diopters Indications: Mechanical complication of intraocular lens implant, unwanted refractive error, left eye Procedure Description: OPHTHALMIC SURGERY OPERATIVE REPORT PREOPERATIVE DIAGNOSIS: 1. Mechanical complication of intraocular lens implant, left eye, unwanted refractive error, initial encounter, T85.29XA POSTOPERATIVE DIAGNOSIS: Same OPERATION: 1. Piggyback intraocular lens implant, left eye. IOL: IOL Immigration Attorney/Model: Frank & Frank Sensar AR40E IOL Power: +3.0 diopters Optic Diameter: 6.0 mm Haptic/Overall Diameter: 13.0 mm PHACO INFO: Todd Seva Coffeeurion Vision System with OZil and Active Fluidics Cumulative Dispersed Energy (CDE): 0 seconds SURGEON: Govind Davis MD, ERENDIRA ANESTHESIA: Monitored A [facility] (MAC), with local sub-tenon's anesthetic infiltration COMPLICATIONS: None SPECIMENS: None INDICATIONS FOR PROCEDURE: The patient is a 68 year old male with history of high myopia OU. He has undergone ce/iol OD in 2021 with recent yag laser capsulotomy OD, now with UCDVA of 20/20 in the right eye. He underwent ce/iol OS on 03/17/2023, now with UCDVA of 20/20. However, he would rather have better near vision OS, and does not want to rely on spectacles or contact lens correction. Possible remedies include IOL exchange or piggyback IOL. Initial surgery on both eyes required the used of capsule tension ring due to signifcant diffuse zonular laxity, so IOL exchange could be quite risky. A better option is to place a sulcus fixated 3 piece piggyback IOL over the existing IOL. PROCEDURE: The correct surgical eye was identified and marked as the left eye and the pupil was dilated in the preoperative area using mydriatics and cycloplegics. The dilated pupil size was 6.5 mm. Oral sedation was administered in the form of an Imprimis MKO Melt (midazolam 3mg/ketamine 25mg/ondansetron 2mg). The patient was brought to the operating room where cardiopulmonary monitoring was instituted and surgical time-out was performed, confirming the correct operative eye and IOL power. Topical anesthesia was administered and ophthalmic povidone-iodine 5% was instilled into the conjunctival fornices. The elio-ocular area was prepped with Betadine 10% solution and draped in the usual sterile fashion for intraocular surgery, including an aperture drape. A Tegaderm transparent film dressing was cut in half and used to cover the lashes and lid margins. Care was taken to sequester the lashes and lid margins under the Tegaderm dressing. A lid speculum was placed between the lids of the operative eye and the Todd LuxOR Revalia operating microscope was maneuvered into position. Christoph scissors were then used to make a conjunctival buttonhole approximately 6mm posterior to the limbus in the inferonasal quadrant. Blunt dissection was carried out to expose bare sclera, and a blunt-tipped sub-tenon?s anesthesia cannula was introduced and passed posteriorly along the globe where non-preserved plain lidocaine was injected into posterior sub-Tenon?s space. A sideport knife was used to make a paracentesis port. Intraocular phenylephrine/lidocaine was injected int the anterior chamber.. The anterior chamber was filled with Healon Pro viscoelastic. A Sourcebazaar nucleus manipulator was then used to re-open the main phaco incision, which was then enlarged to about 3mm with the 2.6mm phaco knife. The ciliary sulcus was then inflated and the anterior chamber deepened with more viscoelastic. The lens implant described above was inserted into the anterior chamber, on top of the iris, using the Frank and Frank [place] injector. A Kuglen hook was used to place the trailing haptic gently into the ciliary sulcus, followed by the leading haptic. The haptics were located at the 6 and 12:00 position, and the IOL was noted to be well centered. Small aliquots of Miostat were then injected at the pupillary margin until the pupil constriction to about 4mm. Residual viscoelastic was then removed from the anterior chamber using the I/A handpiece. The incisions were stromally hydrated, and the anterior chamber was reformed using BSS. Then 0.5cc of moxifloxacin 1.0mg/ml were injected into the capsular bag and anterior chamber. The incisions were checked with a Weck spear and found to be secure. Several drops of ophthalmic povidone-iodine 5% were then applied to the eye followed by two drops of Imprimis combination prednisolone/moxifloxacin/nepafenac solution. The drapes were removed and a clear plastic protective eye shield was placed over the eye. The patient was then returned to Same Day Surgery in stable condition.
[2023-04-18] MEDS: Balanced Salt Soln.-PLUS 500 ML BAG OP (12:19)
[2023-04-18 12:20] VITALS: BP 145/94; PULSE 75; RESP 16; TEMP 36.3; O2SAT 92
[2023-04-18] MEDS: Tetracaine 0.5% 4 ML BTL OS (12:20)
[2023-04-18] MEDS: Povidone-Iodine Ophth 30 ML BTL (12:22)
[2023-04-18 12:55] VITALS: BP 136/79; PULSE 72; RESP 16; TEMP 36.7; O2SAT 97
--- NOTE | 2023-04-18 13:12 | W.ANESPOSTOP ---
Postoperative Evaluation Date, Time and Location Date Performed: 04/18/23 Time Performed: 12:25 Patient Location: Day Surgery Unit Vital Signs Most Recent Imported Vital Signs: Most Recent Vital Signs Temp Pulse Resp BP Pulse Ox 36.3 C L 75 16 145/94 H 92 04/18/23 12:20 04/18/23 12:20 04/18/23 12:20 04/18/23 12:20 04/18/23 12:20 Pain Score Most Recent Pain Score: Most Recent Pain Score Pain Level 0 04/18/23 12:20 Assessment Mental Status: Awake (Alert & Oriented to Patient Baseline) Airway and Respiratory Function: Patent airway with normal (patient baseline) respiratory exam Cardiovascular Function: Hemodynamically Stable Hydration Status: Adequately Hydrated Nausea & Vomiting: No Nausea or Vomiting Pain: Pt. Denies Any Pain Peripheral Nerve Block: Patient did not receive a nerve block
== END 2023-04-18 13:00 | disposition home or self-care (01) ==
LOC: SUR 10:29
PROVIDERS: PCP Nurse Practitioner Family; Visit Provider Ophthalmology
PROC: (CPT 66985; principal; 2023-04-18 12:00)
DX: T85.29XA Other mechanical complication of intraocular lens, initial encounter (principal); F17.200 Nicotine dependence, unspecified, uncomplicated
CPT/HCPCS: 66985; V2632

== ENCOUNTER 2023-06-24 13:59 | Outpatient (CLI) | payer OTHER, MEDICAID, SELFPAY ==
[2023-06-24 11:27] LABS: Estimated GFR 82.49 (mL/min/1.73m2)
== END 2023-06-24 14:00 | disposition home or self-care (01) ==
LOC: LBO 14:00
PROVIDERS: PCP Nurse Practitioner Family; Visit Provider Nurse Practitioner Family
DX: I10 Essential (primary) hypertension (principal)
CPT/HCPCS: 36415; 82565; 84132

== ENCOUNTER 2024-08-20 11:35 | Outpatient (CLI) | payer OTHER, SELFPAY ==
[2024-08-20 11:44] LABS: Hemoglobin A1C 5.9 % (<5.7)
[2024-08-20 12:01] LABS: CREATININE 1.1 mg/dL (0.70-1.30); Calculated LDL 113 mg/dL (<100); Cholesterol 192 mg/dL (<200); Estimated GFR 73.12 (mL/min/1.73m2); HDL Cholesterol 52 mg/dL (40-60); Potassium 3.9 mmol/L (3.5-5.1); Triglyceride 135 mg/dL (<150)
[2024-08-20 18:02] LABS: PSA, Screening 0.5 ng/mL (<=4.5)
== END 2024-08-20 11:36 | disposition home or self-care (01) ==
LOC: LBO 11:36
PROVIDERS: PCP Nurse Practitioner Family; Visit Provider Nurse Practitioner Family
DX: Z13.1 Encounter for screening for diabetes mellitus (principal); I10 Essential (primary) hypertension; Z12.5 Encounter for screening for malignant neoplasm of prostate
CPT/HCPCS: 36415; 80061; 84153; 82565; 83036; 84132

== ENCOUNTER 2024-10-13 14:58 | Outpatient (CLI) | payer OTHER, SELFPAY ==
[2024-10-13 14:39] LABS: Uric Acid 7.6 mg/dL (3.5-7.2)
== END 2024-10-13 14:59 | disposition home or self-care (01) ==
LOC: LBO 14:58
PROVIDERS: PCP Nurse Practitioner Family; Visit Provider Nurse Practitioner Family
DX: M10.9 Gout, unspecified (principal)
CPT/HCPCS: 36415; 84550

== ENCOUNTER 2025-06-03 08:26 | Outpatient (CLI) | payer MEDICARE, SELFPAY ==
--- NOTE | 2025-06-03 10:04 | DI.RAD_ITS ---
Exam(s) XR KNEE LT 3V AP,LAT,JANIE EXAM: XR KNEE LT 3V AP,LAT,JANIE CLINICAL HISTORY: evaluate pathology - ? bursitis,pain,[id number]. TECHNIQUE: 2D digital imaging was performed. COMPARISON: CR XR KNEE RT 2V AP,LAT from 07/11/2021 FINDINGS: 3 views No evidence of acute fracture. There is a tiny amount of increased joint fluid. There is soft tissue swelling anterior to the patella and patellar ligament. No patellar fracture. There are no obvious degenerative changes in the knee. There are no osteochondral defects. A small benign bone island is noted in the medial femoral condyle. Bone density normal. There is some vascular calcification noted in the popliteal and femoral arteries indicating atherosclerotic involvement. IMPRESSION: Prepatellar soft tissue swelling. No radiopaque foreign bodies. No fractures. Small amount of increased joint fluid noted. DATA REPOSITORY: RADIATION DOSE DELIVERED:
== END 2025-06-03 08:46 ==
LOC: DI 08:26
PROVIDERS: PCP Nurse Practitioner Family; Visit Provider Nurse Practitioner Family
DX: M25.562 Pain in left knee (principal)
CPT/HCPCS: 73562

== ENCOUNTER 2025-06-03 10:14 | Outpatient (CLI) | payer MEDICARE, SELFPAY ==
[2025-06-03 10:20] LABS: Abs Immature Grans 0.05 10^3/uL (0.0-0.06); HCT 43.0 % (40.0-50.0); HGB 14.7 g/dL (13.5-17.5); Immature Grans % 0.4 %; MCH 34.1 pg (27.0-33.0); MCHC 34.2 % (32.0-36.0); MCV 100 fL (80-95); MPV 9.3 fL (8.0-11.0); Platelet Count 299 10^3/uL (130-400); RBC 4.31 10^6/uL (4.36-5.78); RDW 11.9 % (11.8-14.1); RDW-SD 43.8 fL; WBC 12.22 10^3/uL (4.4-10.8)
[2025-06-03 10:41] LABS: Anion Gap 9.0 mmol/L (3-11); BUN 18 mg/dL (7-18); CO2 30.0 mmol/L (21.0-32.0); Calcium 9.5 mg/dL (8.5-10.1); Chloride 100 mmol/L (98-107); Estimated GFR 81.47 (mL/min/1.73m2); Glucose 107 mg/dL (74-106); Potassium 4.0 mmol/L (3.5-5.1); Sodium 139 mmol/L (136-145)
== END 2025-06-03 10:15 | disposition home or self-care (01) ==
LOC: LBO 10:14
PROVIDERS: PCP Nurse Practitioner Family; Visit Provider Nurse Practitioner Family
DX: M25.562 Pain in left knee (principal)
CPT/HCPCS: 36415; 80048; 85025